=== PATIENT | female | born 1955 | race Caucasian/White ===

== ENCOUNTER → 2017-12-29 11:34 | Outpatient (CLI) | payer OTHER, SELFPAY ==
[2017-12-29 14:29] LABS: Anion Gap 12 (5-15); BUN 16 mg/dL (7-18); BUN/Creat Ratio 18.2 RATIO (10-20); Calcium,Total 8.7 mg/dL (8.5-10.1); Chloride 107 mmol/L (98-107); Cholesterol 156 mg/dL (200); Creatinine, Serum 0.88 mg/dL (0.55-1.02); EST Glomerular Filtration Rate 69 mL/min (>60); Est Glom Filt Rate - Afr Amer 84 mL/min (>60); Glucose 90 mg/dL (74-106); High Density Lipoprotein 42 mg/dL; Potassium 4.2 mmol/L (3.5-5.1); Sodium Level 143 mmol/L (136-145); Thyroid Stim Hormone (TSH) 1.26 uIU/mL (0.358-3.74); Triglycerides 85 mg/dL; Very Low Density Lipoprotein 17 mg/dL (5-40)
== END ==
LOC: MFPLAB 11:36
PROVIDERS: Family Provider Family Medicine; PCP Family Medicine; Visit Provider Family Medicine
DX: I10 Essential (primary) hypertension (principal); E66.9 Obesity, unspecified
CPT/HCPCS: 36415; 80048; 80061; 84443

== ENCOUNTER → 2019-01-18 10:05 | Outpatient (CLI) | payer OTHER, SELFPAY ==
[2019-01-18 12:26] LABS: Absolute Lymphocyte Count 2.16 X10^3/uL (0.83-4.51); Absolute Neutrophil Count 4.2 X10^3/uL (2.0-7.7); Basophil# 0.11 X10^3/uL; Basophil% 1.5 % (0-1); Eosinophil# 0.37 X10^3/uL; Hematocrit 38.1 % (37-47); Hemoglobin 11.9 g/dL (12.0-15.0); Lymphocyte # 2.16 X10^3/ul (4.0); Mean Corp Hgb Conc 31.2 g/dL (32-36); Mean Corpuscular Hgb 29.5 pg (27.0-32.0); Mean Corpuscular Volume 94.5 fL (81-99); Mean Platelet Vol. 9.9 fl (6.2-12.0); Monocyte# 0.59 X10^3/uL; Monocyte% 7.9 % (0-10); NRBC Flagged by Analyzer 0 % (0-5); Neutrophil % 56.3 % (47-70); Platelet Count 358 K/mm3 (150-450); RBC Distribution Width CV 14.7 % (11.6-14.6); RBC Distribution Width SD 51.2 fl (35.1-43.9); Red Blood Count 4.03 M/mm3 (4.2-5.4); White Blood Count 7.5 K/mm3 (4.4-11.0)
[2019-01-18 12:47] LABS: Anion Gap 4 (5-15); BUN 18 mg/dL (7-18); BUN/Creat Ratio 17.5 RATIO (10-20); Chloride 106 mmol/L (98-107); Cholesterol 125 mg/dL (200); Creatinine, Serum 1.03 mg/dL (0.55-1.02); EST Glomerular Filtration Rate 57 mL/min (>60); Est Glom Filt Rate - Afr Amer 69 mL/min (>60); Glucose 95 mg/dL (74-106); High Density Lipoprotein 40 mg/dL; Potassium 4.5 mmol/L (3.5-5.1); Sodium Level 139 mmol/L (136-145); Triglycerides 83 mg/dL; Very Low Density Lipoprotein 17 mg/dL (5-40)
== END ==
LOC: MFPLAB 10:06
PROVIDERS: Family Provider Family Medicine; PCP Family Medicine; Referring Provider Family Medicine; Visit Provider Family Medicine
DX: I10 Essential (primary) hypertension (principal); K62.5 Hemorrhage of anus and rectum
CPT/HCPCS: 36415; 80048; 80061; 85025

== ENCOUNTER 2019-11-18 09:43 | Emergency (ER) | payer OTHER, SELFPAY ==
[2019-11-18] VITALS (8 sets, daily range): BP systolic 92–142; BP diastolic 62–81; PULSE 75–94; RESP 12–22; TEMP 36.8; O2SAT 95–98; BMI 41.2
--- NOTE | 2019-11-18 09:48 | EKG12_ITS ---
Test Reason : Blood Pressure : / mmHG Vent. Rate : 086 BPM Atrial Rate : 086 BPM P-R Int : 142 ms QRS Dur : 078 ms QT Int : 370 ms P-R-T Axes : 034 012 029 degrees QTc Int : 442 ms Normal sinus rhythm Normal ECG Confirmed by BERTHA SANCHEZ MD ([id number]), metropolitan editor THA ADKINS ([id number] on 11/21/2019 1:08:50 PM Referred By: CL Confirmed By:BERTHA SANCHEZ MD
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
[2019-11-18] MEDS: Diphth,Pertuss(Acell),Tet Vac 0.5 ML Vial IM (10:05)
[2019-11-18 10:20] LABS: Absolute Lymphocyte Count 2.47 X10^3/uL (0.83-4.51); Absolute Neutrophil Count 10.8 X10^3/uL (2.0-7.7); Basophil# 0.08 X10^3/uL; Basophil% 0.5 % (0-1); Eosinophil# 0.28 X10^3/uL; Eosinophils% 1.9 % (0-5); Hematocrit 37.3 % (37-47); Hemoglobin 12.5 g/dL (12.0-15.0); Lymphocyte # 2.47 X10^3/ul (4.0); Lymphocyte % 16.7 % (19-41); Mean Corp Hgb Conc 33.5 g/dL (32-36); Mean Corpuscular Hgb 30.6 pg (27.0-32.0); Mean Corpuscular Volume 91.4 fL (81-99); Mean Platelet Vol. 9.5 fl (6.2-12.0); Monocyte# 1.04 X10^3/uL; NRBC Flagged by Analyzer 0 % (0-5); Neutrophil % 73.2 % (47-70); Platelet Count 341 K/mm3 (150-450); RBC Distribution Width CV 13.8 % (11.6-14.6); RBC Distribution Width SD 46.9 fl (35.1-43.9); Red Blood Count 4.08 M/mm3 (4.2-5.4); White Blood Count 14.8 K/mm3 (4.4-11.0)
[2019-11-18 10:45] LABS: Anion Gap 6 (5-15); BUN 15 mg/dL (7-18); BUN/Creat Ratio 13.9 RATIO (10-20); Calcium,Total 8.5 mg/dL (8.5-10.1); Chloride 104 mmol/L (98-107); Creatinine, Serum 1.08 mg/dL (0.55-1.02); EST Glomerular Filtration Rate 54 mL/min (>60); Est Glom Filt Rate - Afr Amer 66 mL/min (>60); Estimated Creatinine Clearance 47.35 ml/min; Glucose 135 mg/dL (74-106); Potassium 3.8 mmol/L (3.5-5.1); Sodium Level 136 mmol/L (136-145)
[2019-11-18 11:42] LABS: Bacteria 0 SEEN /hpf (None Seen); Mucous, Urine 0 SEEN /hpf (<or=2+); Red Blood Cells-Urine 0 SEEN /hpf (0-5); White Blood Cells 0 SEEN /hpf (0-5)
[2019-11-18 11:54] LABS: Color, Urine Yellow (Yellow); Glucose, Dipstick Normal (Normal); Ketone-Dipstick Negative (Negative); Leukocyte Esterase-Dipstick Negative /ul (Negative); Nitrite-Dipstick Negative (Negative); Occult Blood-Urine Negative /ul (Negative); Protein-Dipstick Negative (Negative); Urine Bilirubin Dipstick Negative (Negative); Urine Clarity Clear (Clear); Urine Urobilinogen Normal (Normal)
[2019-11-18 12:02] LABS: Squamous Epithelial Cells - UA 0-5 SEEN /hpf (5-10)
[2019-11-18 12:56] LABS: Bedside Glucose 137 mg/dL (70-110)
[2019-11-18] MEDS: 0.9% Normal Saline 1,000 ML 999 ML IV (13:08)
[2019-11-18 13:12] LABS: Absolute Lymphocyte Count 1.86 X10^3/uL (0.83-4.51); Absolute Neutrophil Count 16.4 X10^3/uL (2.0-7.7); Basophil# 0.07 X10^3/uL; Basophil% 0.4 % (0-1); Eosinophil# 0.05 X10^3/uL; Eosinophils% 0.3 % (0-5); Hematocrit 37.6 % (37-47); Hemoglobin 12.2 g/dL (12.0-15.0); Lymphocyte # 1.86 X10^3/ul (4.0); Lymphocyte % 9.5 % (19-41); Mean Corp Hgb Conc 32.4 g/dL (32-36); Mean Corpuscular Hgb 30.5 pg (27.0-32.0); Mean Platelet Vol. 9.5 fl (6.2-12.0); Monocyte# 1.12 X10^3/uL; Monocyte% 5.7 % (0-10); NRBC Flagged by Analyzer 0 % (0-5); Neutrophil % 83.5 % (47-70); Platelet Count 341 K/mm3 (150-450); RBC Distribution Width CV 13.9 % (11.6-14.6); RBC Distribution Width SD 48.1 fl (35.1-43.9); White Blood Count 19.6 K/mm3 (4.4-11.0)
[2019-11-18 13:13] LABS: Amphetamine Urine VISTA NEGATIVE (<1000 ng/mL); Barbiturate Urine VISTA NEGATIVE (< 200 ng/mL); Benzodiazepine Urine VISTA NEGATIVE (< 200 ng/mL); Cocaine Urine VISTA NEGATIVE (< 300 ng/mL); Ecstacy Urine VISTA NEGATIVE (< 500 ng/mL); Methadone Urine VISTA NEGATIVE (< 300 ng/mL); PCP Urine VISTA NEGATIVE (< 25 ng/mL); THC Urine VISTA NEGATIVE (< 50 ng/mL); Vista UDS pH Range 6
== END 2019-11-18 14:59 | disposition home or self-care (01) ==
PROVIDERS: Emergency Provider Emergency Medicine; PCP Family Medicine
DX: S20.219A Contusion of unspecified front wall of thorax, initial encounter (principal); S30.1XXA Contusion of abdominal wall, initial encounter; S70.212A Abrasion, left hip, initial encounter; Z23 Encounter for immunization; V43.52XA Car driver injured in collision with other type car in traffic accident, initial encounter; Y93.9 Activity, unspecified; Y92.9 Unspecified place or not applicable; Y99.9 Unspecified external cause status; Z79.899 Other long term (current) drug therapy
CPT/HCPCS: 70450; 71260; 72125; 74177; 80048; 80307; 80320; 81001; 82962; 84484; 85025; 90471; 90715; 93005; 96361; 96374; 99285; Q9967; A4216; G0480

== ENCOUNTER → 2020-07-31 12:34 | Outpatient (CLI) | payer OTHER, SELFPAY ==
[2019-11-18 09:45] VITALS: BMI 41.2
[2020-07-31 15:21] LABS: Absolute Lymphocyte Count 2.33 X10^3/uL (0.83-4.51); Absolute Neutrophil Count 6.5 X10^3/uL (2.0-7.7); Basophil# 0.09 X10^3/uL; Basophil% 0.9 % (0-1); Eosinophil# 0.23 X10^3/uL; Eosinophils% 2.3 % (0-5); Hematocrit 42.8 % (37-47); Hemoglobin 13.8 g/dL (12.0-15.0); Lymphocyte # 2.33 X10^3/ul (4.0); Lymphocyte % 23.3 % (19-41); Mean Corp Hgb Conc 32.2 g/dL (32-36); Mean Corpuscular Hgb 30.1 pg (27.0-32.0); Mean Corpuscular Volume 93.4 fL (81-99); Mean Platelet Vol. 10.1 fl (6.2-12.0); Monocyte# 0.79 X10^3/uL; Monocyte% 7.9 % (0-10); NRBC Flagged by Analyzer 0 % (0-5); Neutrophil # 6.53 X10^3/uL (2.7-7.7); Neutrophil % 65.3 % (47-70); Platelet Count 409 K/mm3 (150-450); RBC Distribution Width CV 14.1 % (11.6-14.6); RBC Distribution Width SD 48.2 fl (35.1-43.9); Red Blood Count 4.58 M/mm3 (4.2-5.4)
[2020-07-31 15:47] LABS: ALB/GLOB Ratio 0.9 RATIO (0.9-2.4); AST(SGOT) 17 U/L (15-37); Alanine Aminotransfer ALT/SGPT 26 U/L (13-56); Albumin, Serum 3.6 g/dL (3.2-5.0); Alkaline Phosphatase 101 U/L (45-117); Anion Gap 5 (5-15); BUN 14 mg/dL (7-18); BUN/Creat Ratio 16.6 RATIO (10-20); Chloride 105 mmol/L (98-107); Cholesterol 150 mg/dL (200); Creatinine, Serum 0.84 mg/dL (0.55-1.02); EST Glomerular Filtration Rate 72 mL/min (>60); Est Glom Filt Rate - Afr Amer 87 mL/min (>60); Globulin 4.2 g/dL (2.2-4.2); Glucose 89 mg/dL (74-106); High Density Lipoprotein 35 mg/dL; Potassium 4.1 mmol/L (3.5-5.1); Protein, Total 7.8 g/dL (6.4-8.2); Sodium Level 137 mmol/L (136-145); Triglycerides 186 mg/dL; Very Low Density Lipoprotein 37 mg/dL (5-40)
[2020-07-31 15:48] LABS: Hemoglobin A1c 5.7 % (3.8-5.6)
== END ==
PROVIDERS: PCP Family Medicine; Referring Provider Registered Nurse; Visit Provider Registered Nurse
DX: Z00.00 Encounter for general adult medical examination without abnormal findings (principal)
CPT/HCPCS: 36415; 80053; 80061; 83036; 85025

== ENCOUNTER → 2020-08-27 16:25 | Outpatient (CLI) | payer OTHER, SELFPAY ==
[2019-11-18 09:45] VITALS: BMI 41.2
[2020-08-27 17:34] LABS: Absolute Lymphocyte Count 3.52 X10^3/uL (0.83-4.51); Absolute Neutrophil Count 7.6 X10^3/uL (2.0-7.7); Basophil# 0.09 X10^3/uL; Basophil% 0.7 % (0-1); Eosinophil# 0.32 X10^3/uL; Eosinophils% 2.5 % (0-5); Hematocrit 27.5 % (37-47); Hemoglobin 8.5 g/dL (12.0-15.0); Lymphocyte # 3.52 X10^3/ul (0.83-4.51); Mean Corp Hgb Conc 30.9 g/dL (32-36); Mean Corpuscular Volume 93.9 fL (81-99); Mean Platelet Vol. 9.7 fl (6.2-12.0); Monocyte% 7.2 % (0-10); NRBC Flagged by Analyzer 0 % (0-5); Neutrophil # 7.63 X10^3/uL (2.7-7.7); Neutrophil % 60.6 % (47-70); Platelet Count 419 K/mm3 (150-450); RBC Distribution Width CV 14.9 % (11.6-14.6); Red Blood Count 2.93 M/mm3 (4.2-5.4); White Blood Count 12.6 K/mm3 (4.4-11.0)
== END ==
PROVIDERS: PCP Family Medicine; Visit Provider Family Medicine
DX: K92.2 Gastrointestinal hemorrhage, unspecified (principal)
CPT/HCPCS: 36415; 85025

== ENCOUNTER 2020-08-28 11:42 | Emergency (ER) | payer OTHER, SELFPAY ==
[2019-11-18 09:45] VITALS: BMI 41.2
[2020-08-28 11:43] VITALS: BP 132/77; PULSE 98; RESP 22; TEMP 36.3; O2SAT 99; BMI 38.9
[2020-08-28 12:39] LABS: Absolute Lymphocyte Count 2.72 X10^3/uL (0.83-4.51); Absolute Neutrophil Count 9.4 X10^3/uL (2.0-7.7); Basophil# 0.11 X10^3/uL; Basophil% 0.8 % (0-1); Eosinophils% 2.2 % (0-5); Hematocrit 28.4 % (37-47); Lymphocyte # 2.72 X10^3/ul (0.83-4.51); Lymphocyte % 19.8 % (19-41); Mean Corp Hgb Conc 31.7 g/dL (32-36); Mean Corpuscular Hgb 29.6 pg (27.0-32.0); Mean Corpuscular Volume 93.4 fL (81-99); Mean Platelet Vol. 9.2 fl (6.2-12.0); Monocyte# 1.06 X10^3/uL; Monocyte% 7.7 % (0-10); NRBC Flagged by Analyzer 0 % (0-5); Neutrophil # 9.41 X10^3/uL (2.7-7.7); Neutrophil % 68.3 % (47-70); Platelet Count 433 K/mm3 (150-450); RBC Distribution Width CV 15.2 % (11.6-14.6); Red Blood Count 3.04 M/mm3 (4.2-5.4); White Blood Count 13.8 K/mm3 (4.4-11.0)
[2020-08-28 12:44] VITALS: BP 113/65; PULSE 80; RESP 10; O2SAT 97
[2020-08-28 12:48] LABS: International Normalized Ratio 1.1; Prothrombin Time (Protime)PT. 13.2 SECONDS (11.7-14.9)
[2020-08-28 12:49] LABS: Partial Thromboplast Time 27.1 Seconds (24.1-36.2)
[2020-08-28 12:54] LABS: Anion Gap 7 (5-15); BUN 10 mg/dL (7-18); BUN/Creat Ratio 11.1 RATIO (10-20); Calcium,Total 8.5 mg/dL (8.5-10.1); Chloride 108 mmol/L (98-107); EST Glomerular Filtration Rate 67 mL/min (>60); Est Glom Filt Rate - Afr Amer 81 mL/min (>60); Estimated Creatinine Clearance 56.08 ml/min; Glucose 93 mg/dL (74-106); Potassium 3.7 mmol/L (3.5-5.1); Sodium Level 140 mmol/L (136-145)
--- NOTE | 2020-08-28 12:54 | EDS_ITS ---
HPI HPI - GI History of Present Illness Chief Complaint: GI Bleed Narrative Narrative: Patient presenting for evaluation due to concerns for a GI bleed. Patient states that on Thursday and Thursday of last week she was having issues with gastrointestinal bleeding. She reports that she was having both black tarry stools as well as bright red blood per rectum. She had multiple episodes of this throughout the course of those days. She denies any abdominal pain. She denies any fevers. She denies nausea vomiting or hematemesis associated with this. Throughout the course of that time the patient stated that she started to have feelings of being more short of breath on exertion. She denies any chest pain. She does also report that she was having increased fatigue. Her primary care yohannes labs, noted that she had a hemoglobin of 8-1/2 and recommended that she come to the emergency department. Patient is not anticoagulated, she does take prescription strength Naprosyn which she states that she stopped on Thursday. Review of systems otherwise negative. [facility] Medical History (Updated 08/28/20 @ 13:[address] Tino Johnson MD) Hypertension Home Medications amlodipine 5 mg PO DAILY 11/18/19 [History Last Taken 08/27/20] hydrocodone-acetaminophen 0.5 - 1 tab PO BID PRN PRN 11/18/19 [History Last Taken 08/28/20] naproxen 500 mg PO BID 11/18/19 [History Last Taken 08/23/20] aspirin [Aspirin Low Dose] 81 mg PO DAILY 08/28/20 [History Last Taken 08/28/20] ferrous sulfate [iron] 325 mg PO DAILY #30 tab 08/28/20 [Rx Last Taken Unknown] Allergy/AdvReac Type Severity Reaction Status Date / Time Penicillins Allergy Hives Verified 08/28/20 11:43 Surgical History (Updated 08/28/20 @ 12:47 by Andres Peace) History of cholecystectomy Social History Smoking Status: Current every day smoker [facility] ED Constitutional Constitutional ED: Denies chills or fever(s) ENT ENT ED: Denies sore throat Cardiovascular Cardiovascular: Denies chest pain Respiratory/Chest Respiratory/Chest: Denies cough or dyspnea Gastrointestinal Gastrointestinal: Reports hematochezia; Denies abdominal pain, constipation, diarrhea, nausea or vomiting Genitourinary Genitourinary ED: Denies dysuria, hematuria or urinary frequency Musculoskeletal Musculoskeletal: Denies myalgias Integumentary Denies rash Neurologic Neurologic: Denies paresthesias or weakness Psychiatric Psychiatric: Denies depression Endocrine Endocrinology: Denies polyuria Hematologic/Lymphatic Hematologic/Lymphatic: Denies easy bleeding or easy bruising Allergic/Immunologic Allergic/Immunologic ED: Denies urticaria EXAM Physical Exam Const Vital Signs: 08/28/20 11:43 08/28/20 12:44 Temperature 97.4 F L Temperature Source Temporal Pulse Rate 98 80 Respiratory Rate 22 H 10 L Blood Pressure 132/77 H 113/65 Blood Pressure Mean 95 81 Pulse Ox 99 97 Oxygen Delivery Method Room Air Room Air Positive well nourished and well developed General Appearance ED: well developed and NAD HEENT normocephalic and atraumatic Eyes EOMs intact bilaterally General Eye ED: Negative for pale conjunctiva or scleral icterus Neck no lymphadenopathy and supple Resp normal respiratory effort and clear to auscultation bilaterally Cardio regular rate, regular rhythm, no murmurs and peripheral pulses 2+ throughout GI non-tender, non-distended and no masses Palpation: soft; Negative for guarding, rigid or rebound tenderness present Back/Spine no CVA tenderness Extremity full ROM General Extremety ED: Negative for edema General Extremity: Negative for edema Neuro moves all extremities and no sensory deficits noted Sensorium / Orientation: alert, oriented to person, oriented to place and oriented to time Motor Exam: strength 5/5 throughout Psych mental status grossly normal Skin Rashes: no rashes MDM MDM MDM Narrative Medical decision making narrative: Patient presented with signs and symptoms of GI bleed. I did recheck the patient's hemoglobin, it is 9.0. This is a significant drop from prior labs that the patient had in July where her hemoglobin was 13.8 but it is not to the point of severe anemia where she necessarily requires a blood transfusion. She did have mild leukocytosis at 13.8 likely reactive. Patient's chemistry unremarkable she does not have pathologic elevation of her BUN making the likelihood of an upper GI bleed less likely. Patient has stable vitals in the emergency department. I had a megha discussion with patient about inpatient versus outpatient management and she does state that she would wish to manage this as an outpatient. 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 Patient was educated on signs and symptoms which to return she voiced understanding of these in her own words. Patient was discharged in stable condition. Lab Data Labs: Laboratory Results - last 24 hr 08/28/20 08/28/20 08/28/20 12:30 12:30 12:30 WBC 13.8 H RBC 3.04 L Hgb 9.0 L Hct 28.4 L MCV 93.4 MCH 29.6 MCHC 31.7 L RDW Std Deviation 51.0 H RDW Coeff of Angeline 15.2 H Plt Count 433 MPV 9.2 Immature Gran % (Auto) 1.200 H Neut % (Auto) 68.3 Lymph % (Auto) 19.8 [place] % (Auto) 7.7 Eos % (Auto) 2.2 Baso % (Auto) 0.8 Absolute Neuts (auto) 9.4 H Absolute Lymphs (auto) 2.72 Nucleated RBC % 0 PT 13.2 INR 1.1 APTT 27.1 Sodium 140 Potassium 3.7 Chloride 108 H Carbon Dioxide 25.0 Anion Gap 7 BUN 10 Creatinine 0.90 Estim Creat Clear Calc 56.08 Est GFR (MDRD) Af Amer 81 Est GFR (MDRD) Non-Af 67 BUN/Creatinine Ratio 11.1 Glucose 93 Calcium 8.5 Blood Type Antibody Screen Crossmatch 08/28/20 12:30 WBC RBC Hgb Hct MCV MCH MCHC RDW Std Deviation RDW Coeff of Angeline Plt Count MPV Immature Gran % (Auto) Neut % (Auto) Lymph % (Auto) [place] % (Auto) Eos % (Auto) Baso % (Auto) Absolute Neuts (auto) Absolute Lymphs (auto) Nucleated RBC % PT INR APTT Sodium Potassium Chloride Carbon Dioxide Anion Gap BUN Creatinine Estim Creat Clear Calc Est GFR (MDRD) Af Amer Est GFR (MDRD) Non-Af BUN/Creatinine Ratio Glucose Calcium Blood Type Cancelled Antibody Screen Cancelled Crossmatch See Detail Discharge Plan Triage Chief Complaint: GI Bleed Other Complaint: Abn Labs ED Provider: Tino Johnson Dx/Rx/DC Orders Clinical Impression: Acute lower gastrointestinal bleeding, Anemia Instructions: ED Lower GI Bleeding (Stable) Prescriptions: New ferrous sulfate [iron] 325 mg (65 mg iron) tablet 325 mg PO DAILY Qty: 30 RF: 0 No Action hydrocodone-acetaminophen 1 EACH tablet 0.5 - 1 tab PO BID PRN PRN (Reason: mod pain) RF: 0 amlodipine 5 MG tablet 5 mg PO DAILY RF: 0 naproxen 500 MG tablet 500 mg PO BID RF: 0 aspirin [Aspirin Low Dose] 81 mg Tablet,Delayed Release (Dr/Ec) 81 mg PO DAILY RF: 0 Primary Care Provider: Allyn Campos Referrals: Allyn Campos MD [Primary Care Provider] - Jt Thomson MD [NON-STAFF] - 1 Day (Call tomorrow for an appointment to be seen on Thursday) Disposition Disposition: Home, self care
--- NOTE | 2020-08-28 12:57 | HP.PCM.HOS_ITS ---
[facility] Medical History (Updated 08/28/20 @ 12:50 by Andres Peace) Hypertension Home Medications amlodipine 5 mg PO DAILY 11/18/19 [History Last Taken Unknown] hydrocodone-acetaminophen 1 ea PO BID PRN PRN 11/18/19 [History Last Taken Unknown] naproxen 500 mg PO BID 11/18/19 [History Last Taken Unknown] Allergy/AdvReac Type Severity Reaction Status Date / Time Penicillins Allergy Hives Verified 08/28/20 11:43 Surgical History (Updated 08/28/20 @ 12:47 by Andres Peace) History of cholecystectomy Social History Smoking Status: Current every day smoker Vital Signs Vital Signs Vital Signs: 08/28/20 11:43 08/28/20 12:44 Temperature 97.4 F L Temperature Source Temporal Pulse Rate 98 80 Respiratory Rate 22 H 10 L Blood Pressure 132/77 H 113/65 Blood Pressure Mean 95 81 Pulse Ox 99 97 Oxygen Delivery Method Room Air Room Air Lab / Micro Data Result Diagrams: 08/28/20 12:30 08/28/20 12:30 Labs: Laboratory Results - last 24 hr 08/28/20 08/28/20 08/28/20 12:30 12:30 12:30 WBC 13.8 H RBC 3.04 L Hgb 9.0 L Hct 28.4 L MCV 93.4 MCH 29.6 MCHC 31.7 L RDW Std Deviation 51.0 H RDW Coeff of Angeline 15.2 H Plt Count 433 MPV 9.2 Immature Gran % (Auto) 1.200 H Neut % (Auto) 68.3 Lymph % (Auto) 19.8 [place] % (Auto) 7.7 Eos % (Auto) 2.2 Baso % (Auto) 0.8 Absolute Neuts (auto) 9.4 H Absolute Lymphs (auto) 2.72 Nucleated RBC % 0 PT 13.2 INR 1.1 APTT 27.1 Sodium 140 Potassium 3.7 Chloride 108 H Carbon Dioxide 25.0 Anion Gap 7 BUN 10 Creatinine 0.90 Estim Creat Clear Calc 56.08 Est GFR (MDRD) Af Amer 81 Est GFR (MDRD) Non-Af 67 BUN/Creatinine Ratio 11.1 Glucose 93 Calcium 8.5 Blood Type Antibody Screen Crossmatch 08/28/20 12:30 WBC RBC Hgb Hct MCV MCH MCHC RDW Std Deviation RDW Coeff of Angeline Plt Count MPV Immature Gran % (Auto) Neut % (Auto) Lymph % (Auto) [place] % (Auto) Eos % (Auto) Baso % (Auto) Absolute Neuts (auto) Absolute Lymphs (auto) Nucleated RBC % PT INR APTT Sodium Potassium Chloride Carbon Dioxide Anion Gap BUN Creatinine Estim Creat Clear Calc Est GFR (MDRD) Af Amer Est GFR (MDRD) Non-Af BUN/Creatinine Ratio Glucose Calcium Blood Type Cancelled Antibody Screen Cancelled Crossmatch See Detail
--- NOTE | 2020-08-28 13:02 | NURSING ---
HOSPITALIST FOR DR ZAMUDIO
[2020-08-28 13:34] VITALS: BP 110/69; PULSE 81; RESP 22; O2SAT 99
== END 2020-08-28 13:47 | disposition home or self-care (01) ==
PROVIDERS: Emergency Provider Emergency Medicine; PCP Family Medicine
DX: K92.2 Gastrointestinal hemorrhage, unspecified (principal); D64.9 Anemia, unspecified; R06.02 Shortness of breath; I10 Essential (primary) hypertension; F17.200 Nicotine dependence, unspecified, uncomplicated; Z79.82 Long term (current) use of aspirin; Z79.1 Long term (current) use of non-steroidal anti-inflammatories (NSAID); Z79.899 Other long term (current) drug therapy
CPT/HCPCS: 80048; 85025; 85610; 85730; 86850; 86900; 86901; 99284; A4216

== ENCOUNTER → 2021-04-09 15:16 | Outpatient (CLI) | payer MEDICARE, SELFPAY ==
--- NOTE | 2021-04-09 15:21 | RAD_ITS ---
STUDY: X-RAY - PELVIS AND LEFT HIP REASON FOR EXAM: Female, 66 years old. PAIN TECHNIQUE: 3 views of the pelvis and hip. COMPARISON: None. FINDINGS: There is a non-specific bowel gas pattern. Normal visualized soft tissue structures. There is narrowing with cortical sclerosis and osteophyte formation of the sacroiliac joint consistent with degenerative osteoarthritic changes. Normal bilateral superior and inferior pubic rami. Normal pubic symphysis. Normal bilateral ischial tuberosities. There are osteoarthritic changes of the femoral head with marginal osteophyte formation. Increased sclerosis over the articular region seen. There is cortical sclerosis with sub-cortical cyst formation of the acetabulum. is severe articular joint space narrowing of the hip. RAD/HIP, UNI W/ Pelvis 2-3 Views IMPRESSION: Severe degenerative disease of the left hip. No acute fracture or subluxation seen. Electronically Signed: Jess Asher MD at 2:14 EST , Service support ,
== END ==
PROVIDERS: PCP Family Medicine; Referring Provider Family Medicine; Visit Provider Family Medicine
DX: M25.559 Pain in unspecified hip (principal)
CPT/HCPCS: 73502

== ENCOUNTER 2021-05-22 07:49 | Outpatient (CLI) | payer MEDICARE, SELFPAY ==
--- NOTE | 2021-05-22 07:56 | CT_ITS ---
STUDY: CT SCAN OF THE HIPS BILATERAL REASON FOR EXAM: Female, 66 years old. Templating for left hip RADIATION DOSAGE (If Supplied By Facility): CTDIvol = ( 13.96 ) mGy, DLP = ( 819.71 ) mGycm. Individualized dose optimization techniques were used for this CT.? TECHNIQUE: Multiple axial tomographic images of both hip joints were obtained without intravenous contrast demonstration. Coronal and sagittal reconstruction was obtained as well. Limited imaging of both knee joints was also obtained. COMPARISON: None. FINDINGS: There is a marked degree of joint space narrowing of the left hip joint. There is evidence of a subchondral geodes in the acetabular region as well as the left femoral head. There is degenerative spurring of the femoral head. Avascular necrosis should be ruled out. Mild to moderate degree of joint space narrowing of the right hip joint. There is a marked degree of osteoarthritis and joint space narrowing with subchondral cysts of the lateral femoral compartment of the right knee joint. Moderate degree of joint space narrowing involving the medial compartment of the left knee joint. 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 Electronically Signed: Daniel Goncalves MD at 15:20 EST ,
== END 2021-05-22 23:59 | disposition short-term general hospital (02) ==
LOC: CT 07:51
PROVIDERS: PCP Family Medicine; Referring Provider Orthopaedic Surgery; Visit Provider Orthopaedic Surgery
DX: M16.12 Unilateral primary osteoarthritis, left hip (principal)
CPT/HCPCS: 73700

== ENCOUNTER 2021-06-18 10:21 | Observation (INO) | payer MEDICARE, SELFPAY ==
--- NOTE | 2021-06-05 09:08 | EKG12_ITS ---
Test Reason : PRE OP Blood Pressure : / mmHG Vent. Rate : 082 BPM Atrial Rate : 082 BPM P-R Int : 150 ms QRS Dur : 072 ms QT Int : 376 ms P-R-T Axes : 039 -07 022 degrees QTc Int : 439 ms Normal sinus rhythm Normal ECG Confirmed by DANIEL ZEPEDA, BERTHA ([id number]), advertising editor SEGUN BABIN ([id number]) on 06/06/2021 9:52:29 AM Referred By: Leonel Oviedo Confirmed By:BERTHA SANCHEZ MD
[2021-06-05 11:11] LABS: Absolute Neutrophil Count 5.2 X10^3/uL (2.0-7.7); Basophil# 0.08 X10^3/uL; Basophil% 0.9 % (0-1); Eosinophil# 0.19 X10^3/uL; Eosinophils% 2.2 % (0-5); Hematocrit 40.6 % (37-47); Hemoglobin 13.2 g/dL (12.0-15.0); Mean Corp Hgb Conc 32.5 g/dL (32-36); Mean Corpuscular Hgb 30.2 pg (27.0-32.0); Mean Corpuscular Volume 92.9 fL (81-99); Mean Platelet Vol. 9.3 fl (6.2-12.0); Monocyte% 8.2 % (0-10); NRBC Flagged by Analyzer 0 % (0-5); Neutrophil # 5.19 X10^3/uL (2.7-7.7); Neutrophil % 61.1 % (47-70); Platelet Count 443 K/mm3 (150-450); RBC Distribution Width CV 13.1 % (11.6-14.6); RBC Distribution Width SD 44.8 fl (35.1-43.9); Red Blood Count 4.37 M/mm3 (4.2-5.4); White Blood Count 8.5 K/mm3 (4.4-11.0)
[2021-06-05 11:47] LABS: Anion Gap 6 (5-15); BUN 10 mg/dL (7-18); BUN/Creat Ratio 12.1 RATIO (10-20); Calcium,Total 9.1 mg/dL (8.5-10.1); Chloride 107 mmol/L (98-107); Creatinine, Serum 0.82 mg/dL (0.55-1.02); EST Glomerular Filtration Rate 74 mL/min (>60); Est Glom Filt Rate - Afr Amer 89 mL/min (>60); Glucose 89 mg/dL (74-106); Potassium 3.8 mmol/L (3.5-5.1); Sodium Level 139 mmol/L (136-145)
[2021-06-05 12:02] LABS: International Normalized Ratio 1.1; Partial Thromboplast Time 28.4 Seconds (24.1-36.2); Prothrombin Time (Protime)PT. 13.1 SECONDS (11.7-14.9)
[2021-06-06 09:30] LABS: Fructosamine 216 umol/L (0-285); MG Sendout 2.1 mg/dL (1.6-2.3)
[2021-06-18] VITALS (15 sets, daily range): BP systolic 104–141; BP diastolic 72–89; PULSE 68–92; RESP 11–18; TEMP 36.3–36.8; O2SAT 95–100; BMI 41.1
--- NOTE | 2021-06-18 | HIP_PTH ---
PATIENT: HIGINIO JEREZ LOC: MS3 U#:[id number] AGE/SX: 66/F [place] [facility] [place]: Dr. Leonel Oviedo DO : 1955 BED: 1 DIS: 06/20/2021 SPEC #: [id number] RECD: 06/18/21 13:05 STATUS: ERYN DEANNabila #: [id number] MARILU: 06/18/21 00:[address]: Leonel Oviedo DEPT: SURGICAL PATHOLOGY RECD BY: iWlli Medrano ENTERED: 06/18/21 13:05 SP TYPE: TOTAL HIP OTHR DR: Dr. Allyn Campos MD Tissues: Hip, NOS Procedures: Decalcification bone/plaque Surgery Specimen Level IV HEADER OPERATION: Total hip replacement robotic arm assist PRE-OP DIAGNOSIS: Osteoarthritis left hip TISSUE SUBMITTED: Bone left hip MICROSCOPIC DIAGNOSIS Bone and tissue of left hip, total hip resection: Severe degenerative joint disease. Synovium with mild chronic inflammation. AM:rosemarie 06/20/2021 MICROSCOPIC DESCRIPTION Slides are reviewed. GROSS DESCRIPTION Received is one container labeled with the patient's name and designated bone left hip. The specimen consists of a partly deformed femoral head measuring 5 x 5 x 4.5 cm. The portion of femoral neck measures up to 1 cm in length. Also present attached to the femoral head is a piece of soft tissue measuring 2 x 1 x 0.6 cm. The articular surface displays prominent osteophyte formation, eburnation and bone erosion. The area of eburnation also shows laguerre-white discoloration measuring 4 x 3.5 cm. Sections reveal a laguerre-white area on the surface measuring up to 0.7 cm in depth. [employer] sections are submitted in three cassettes as follows: 1 - soft tissue, entirely submitted, 2?& 3 ?femoral head after decalcification. / SJ:rosemarie 06/18/2021 TC:5 CPT: 45496, 01432
[2021-06-18] MEDS: Lactated Ringers 1,000 ML 999 ML IV (06:40)
[2021-06-18] MEDS: Scopolamine 1mg/72hr Patch 1 PATCH TD (06:52)
[2021-06-18] MEDS: Acetaminophen 500 MG Tablet 1000 MG PO ×3 (06:53→21:10)
[2021-06-18] MEDS: Celecoxib 200 MG Capsule 400 MG PO (06:53)
[2021-06-18] MEDS: Gabapentin 600 MG Tablet PO (06:53)
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
[2021-06-18 07:46] LABS: Bedside Glucose 105 mg/dL (70-110)
[2021-06-18] MEDS: dexAMETHasone 10 MG/ML Vial IV (08:10)
--- NOTE | 2021-06-18 10:16 | RAD_ITS ---
STUDY: X-RAY - PELVIS AND LEFT HIP REASON FOR EXAM: Female, 66 years old. Post Op -- AP both hips on single kristine/lateral of op hip PACU TECHNIQUE: 3 views of the pelvis and hip. COMPARISON: Comparison is made with prior study dated 04/09/2021. FINDINGS: The patient is status post left total hip replacement. There is good alignment. Postoperative soft tissue changes. RAD/Hip Min 2 Views (Portable) IMPRESSION: Status post left total hip replacement. There is good alignment. Postoperative soft tissue changes. Electronically Signed: Daniel Goncalves MD at 11:10 EST ,
--- NOTE | 2021-06-18 10:23 | OP.PCM_ITS ---
Report of Operation Date of Procedure: 06/18/21 Description of Surgical Findings:: Preoperative diagnosis: Left hip DJD Postoperative diagnosis: Same Procedure: CT-guided Makoplasty assisted left total hip arthroplasty Implants: Aurelio Accolade II stem size 6, 132 degree neck angle +2.5 neck length 54 mm Trident II acetabular shell with 40 mm cancellous screw 36 mm ceramic head Anesthesia: Spinal EBL: 175 cc Complications: None Condition: Stable to PACU Indication for procedure: This is a 66-year-old female who has had long-standing arthrosis of the hip who has failed conservative treatment and wished to undergo total hip arthroplasty. We did discuss operative versus nonoperative intervention including risks of bleeding, infection , nerve artery tissue damage, need for further surgery, fracture, leg length discrepancy dislocation blood clot and need for postoperative physical therapy and postoperative expectations. An informed consent was signed. Procedure: Patient was met in the preoperative holding area once again the operative extremity was identified by both patient and physician and was marked. Patient was met by anesthesia . Anesthesia was started. patient was then positioned in the lateral decubitus position on a well-padded pegboard with an axillary roll. All bony prominences were checked and padded. The patient was prepped and draped in the usual sterile fashion. A timeout was called to ensure the proper patient procedure and extremity were being contemplated. Anatomic landmarks were palpated and marked for a standard posterior lateral approach. Prior to this the ASIS was palpated and 3 fingerbreadths proximal to this 3 pins were placed at a 45 degree angle into the iliac crest with good purchase, stab incisions were made with a 15 blade into the skin prior to placement. The Makoplasty array was then secured. A 10 blade scalpel was used to make a hearing instrument specialist ior incision through the skin and subcutaneous tissue. retractors were used and electrocautery was used to maintain meticulous hemostasis and dissect full- thickness flaps until the gluteal fascia was reached. The gluteal fascia was incised in line with the gluteal fibers. The bursal tissue was then freed from the underside and a Charnley retractor was placed. The femoral trochanteric checkpoint was placed and leg length was assessed using the trochanteric checkpoint and an EKG lead that was placed on the knee prior to prepping the leg .the fat pad was then elevated off of the external rotators with electrocautery and the external rotators were dissected off of the greater trochanter including the piriformis and were tagged with #1 Ethibond for later repair. The joint capsule opened with posterior trapdoor technique. The hip was surgically dislocated. The measurement on the preoperative CT from the top of the lesser trochanter to the femoral neck cut was marked Hohmann was placed around the lesser trochanter. A neck cutting guide was used to luis the neck with a Bovie and an oscillating saw was used complete the femoral neck cut. The femoral head was then removed and sized. We then turned our attention to the acetabulum. A Bovie was used to make a perforation in the anterior joint capsule and a Jeffrey retractor was placed this was repeated in the 6 o'clock position and a wide shubham was placed there. With a long handled knife the labral and pulvinar tissue were removed. We then registered the acetabulum with the pointing array and confirmed our landmarks. Once the socket was thoroughly prepared and labral tissue and pulvinar was removed we single reamed with the robotic arm. We then used the robotic arm to position the acetabular implant and impacted it into place under robotic guidance. We then proceeded to place a posterior superior screw by drilling first measuring and inserting the screw. We then inserted a trial liner. And turned our attention back to the femur at this point a femoral elevator was used. As well as a pointed wide Hohmann around the lesser trochanter and a Hohmann to help retract the gluteus medius. A box chisel was used to remove excess lateral neck followed by a canal finder and a lateralizing reamer. This was followed by sequential broaches. Attention was made of the version within the canal based on preoperative templating. Once the final broach was seated we then trialed reduced the hip it was determined that a 132 degree neck angle with a +2.5 neck length was the appropriate size. We then checked stability with shuck testing as well as flexion and internal rotation. then proceeded with hip extension and checked leg lengths at the knees and heels as well as with the trochanteric checkpoint and knee EKG lead. At this point trials were removed. A liner was inserted to the cup. The femoral stem was inserted. We re-trialed and then proceeded to impact the femoral head onto the Prabhu taper. We then surgically reduce the hip check stability again and leg lengths and were satisfied. Betadine rinse was allowed to sit for 5 minutes while everyone changed their gloves. Thorough irrigation was performed. Followed by closure of the external rotators with #2 FiberWire followed by closure of gluteal fascia with #1 Ethibond. 0 Vicryl fat stitches and 2-0 Vicryl subcutaneous stitches and otilio in the skin. A pulls were placed in the pin sites over the iliac crest with Xeroform 4 x 4 and OpSite. dressing was applied to incisional area with Mepilex Ag and an abduction pillow was placed. Patient tolerated the procedure well there was no intraoperative complications all counts were correct and the patient was brought back to the PACU in stable condition
[2021-06-18] MEDS: Lactated Ringers 1,000 ML 125 ML IV ×2 (10:46→16:48)
--- NOTE | 2021-06-18 14:02 | WOUNDNOTE ---
attends changed for large incontinence. patient is still very sleepy from surgery. purewick placed. buttocks without redness or irritation. pt tolerated well.
[2021-06-18] MEDS: oxyCODONE 5 MG Tablet PO ×2 (14:19→21:36)
[2021-06-18] MEDS: Lactated Ringers 1,000 ML 15 ML IV (15:49)
[2021-06-18] MEDS: Senna/Docusate Sodium 1 Tablet 2 TABLET PO (21:10)
[2021-06-19] VITALS (7 sets, daily range): BP systolic 114–131; BP diastolic 60–77; PULSE 79–90; RESP 16–18; TEMP 36.7–37.1; O2SAT 94–98
[2021-06-19 04:47] LABS: Hematocrit 31.1 % (37-47); Hemoglobin 10.2 g/dL (12.0-15.0); Mean Corp Hgb Conc 32.8 g/dL (32-36); Mean Corpuscular Hgb 30.7 pg (27.0-32.0); Mean Corpuscular Volume 93.7 fL (81-99); Mean Platelet Vol. 9.8 fl (6.2-12.0); Platelet Count 249 K/mm3 (150-450); RBC Distribution Width CV 14.2 % (11.6-14.6); RBC Distribution Width SD 48.9 fl (35.1-43.9); Red Blood Count 3.32 M/mm3 (4.2-5.4); White Blood Count 13.9 K/mm3 (4.4-11.0)
[2021-06-19 05:11] LABS: Anion Gap 4 (5-15); BUN 14 mg/dL (7-18); BUN/Creat Ratio 16.2 RATIO (10-20); Calcium,Total 8.4 mg/dL (8.5-10.1); Chloride 106 mmol/L (98-107); Creatinine, Serum 0.86 mg/dL (0.55-1.02); EST Glomerular Filtration Rate 70 mL/min (>60); Est Glom Filt Rate - Afr Amer 85 mL/min (>60); Estimated Creatinine Clearance 53.23 ml/min; Glucose 162 mg/dL (74-106); Potassium 4.5 mmol/L (3.5-5.1); Sodium Level 135 mmol/L (136-145)
[2021-06-19] MEDS: Acetaminophen 500 MG Tablet 1000 MG PO ×3 (06:25→22:27)
[2021-06-19] MEDS: APIXABAN 2.5 MG TABLET PO ×2 (06:26→22:27)
[2021-06-19] MEDS: Ascorbic Acid 500 MG Tablet PO (08:12)
[2021-06-19] MEDS: Cholecalciferol (VIT D3) 25 MCG TABLET (1,000 UNITS) PO (08:12)
[2021-06-19] MEDS: guaiFENesin 600 MG Tablet PO (08:13)
[2021-06-19] MEDS: Magnesium Chloride 64 MG Delay Rel.Tablet 128 MG PO (08:13)
[2021-06-19] MEDS: amLODIPine 5 MG Tablet PO (08:13)
[2021-06-19] MEDS: Senna/Docusate Sodium 1 Tablet 2 TABLET PO ×2 (08:13→22:27)
--- NOTE | 2021-06-19 10:50 | CASEMGMT ---
RN WILFRIDO Face to Face with patient for initial transition planning/care coordination assessment. RN CM introduced self and role at [facility]. Patient sitting in chair, alert and oriented. Patient willing to participate in assessment and is able to answer all questions appropriately. Care providers, pharmacy, and demographics verified. Patient wishes to discharge home with HHC. Patient provided with list and states [facility]. Patient states she has no further needs or concerns at this time. CM to follow for discharge planning needs that may arise. PCP: Meri Specialists: ivanna Oviedo GI Preferred Pharmacy: [facility] retail at discharge. Insurance: MMO [facility] Prescription Benefit: yes Living Will/HPOA: none LNOK: son Living Arrangements: Patient lives alone in a single story home with 1 step and railing to enter the home. Patient states she was independent at home prior to surgery Transportation: son DME/HHC: Patient states she has raised toilet, cane, walker, hip kit, and grab bars at home. Patient denies previous HHC or SNF. CM to make referral to C. Disposition Plan: Patient to discharge home with [facility], family support, and follow-up plans in place. Zully CHAHAL, RN, CM
--- NOTE | 2021-06-19 11:00 | CASEMGMT ---
DEBO CM in to complete ECHOLS form with patient. RN WILFRIDO explained ECHOLS form to patient, patient voiced understanding. Patient signed ECHOLS form and filed in chart. Patient provided with copy of signed ECHOLS form. Patient had no further questions or concerns at this time.
--- NOTE | 2021-06-19 14:08 | CASEMGMT ---
Addendum entered by Josefa Tim 06/19/21 14:34: Received acceptance from [facility], will plan SOC on Thursday. Pt notified of this and provided information on the hospital van for transportation. Original Note: TC martin Hudson at [facility] to make referral for PT. Referral made, she will call back with acceptance.
[2021-06-19] MEDS: oxyCODONE 5 MG Tablet PO ×2 (17:31→22:29)
[2021-06-20 04:00] VITALS: BP 128/62; PULSE 90; RESP 16; TEMP 37.1; O2SAT 94
[2021-06-20] MEDS: oxyCODONE 5 MG Tablet PO (05:21)
[2021-06-20] MEDS: Acetaminophen 500 MG Tablet 1000 MG PO (05:21)
[2021-06-20 06:13] LABS: Hematocrit 30.8 % (37-47); Hemoglobin 10.1 g/dL (12.0-15.0); Mean Corp Hgb Conc 32.8 g/dL (32-36); Mean Corpuscular Hgb 31.5 pg (27.0-32.0); Platelet Count 261 K/mm3 (150-450); RBC Distribution Width CV 14.5 % (11.6-14.6); RBC Distribution Width SD 50.5 fl (35.1-43.9); Red Blood Count 3.21 M/mm3 (4.2-5.4); White Blood Count 11.8 K/mm3 (4.4-11.0)
--- NOTE | 2021-06-20 07:34 | PCM.PN.ORT ---
Subjective Subjective Patient seen and examined doing well pain controlled ambulating with physical therapy she feels she is stable to go home Objective Data Objective Data Vital Signs: Vital Signs Temp Pulse Resp BP Pulse Ox 98.8 F 90 16 128/62 H 94 06/20/21 04:00 06/20/21 04:00 06/20/21 04:00 06/20/21 04:00 06/20/21 04:00 Oxygen Flow Rate (L/min) 2 Oxygen Delivery Method Room Air Weight: 235 lb 10.786 oz Body Mass Index (BMI) 41.1 Intake & Output: Intake and Output for Last 24 Hours 06/18/21 06/19/21 06/20/21 23:59 23:59 23:59 Intake Total 3049.33 / 3849.33 2752.75 / 2752.75 Output Total 400 / 1900 2700 / 3900 2800 / 2800 Balance 2649.33 / 1949.33 52.75 / -1147.25 -2800 / -2800 Lab / Micro Data Result Diagrams: 06/20/21 05:34 06/19/21 04:26 Labs: Laboratory Results - last 24 hr 06/20/21 05:34: WBC 11.8 H, RBC 3.21 L, Hgb 10.1 L, Hct 30.8 L, MCV 96.0, MCH 31.5, MCHC 32.8, RDW Std Deviation 50.5 H, RDW Coeff of Angeline 14.5, Plt Count 261, MPV 10.0 Micro: Microbiology 06/17/21 12:08 Interface Orders SARS-CoV-2 Antigen (Rapid) - Final 06/05/21 09:28 Swab (Method) Nasal Screen MRSA/MSSA - Final Physical Exam Const alert and oriented x3 General Appearance: cooperative Extremity Extremity Narrative: Dressing clean dry and intact compartments soft neurovascular intact EHL tibialis anterior gastrocsoleus intact and station light touch palpable pedal pulses Assessment & Plan Assessment/Plan (1) Osteoarthritis of left hip: QUALIFIERS: Osteoarthritis type: primary Qualified Code(s): M16.12 - Unilateral primary osteoarthritis, left hip PLAN: Postop day #2 left total hip arthroplasty. Patient lives alone and was not able to be approved for an admission by her insurance or rehab by her insurance they did however approve a 48-hour observation. Therefore based on her request she was kept the length of time allowed and will be discharged home with home physical therapy. She will follow-up in the office in 2 weeks for staple removal and wound check she will continue her Eliquis 2.5 mg twice daily for 3 weeks postop.
--- NOTE | 2021-06-20 07:36 | PCM.DC ---
Discharge Instructions Diet Discharge Diet: No restrictions Dressing / Incision Call your doctor if you observe: Fever of 101 or Higher, Shortness of breath and Chest pain Additional Dressing/Incision Instructions:: Do not shower 4 days postop. Begin daily showering warm water antibacterial soap postop day #4 and then daily. Leave the dressing on for 4 days postoperatively then may remove prior to first shower and change dressing daily after this until no drainage for 2 consecutive days then may leave open to air. Follow hip precautions that were reviewed in hospital. Wear compression stockings, may remove at night. Start physical therapy as directed in hospital. Follow prescriptions instructions do not take any other pain medication or differ dosing without consulting your physician. Do not take oral NSAIDs until blood thinner has been completed , then may begin the day after completion if needed . Call Dr. Oviedo's office with any concerns. Since you already have a prescription for Tylenol 1 will not be dispensed but he should be taking 1000 mg of Tylenol acetaminophen every 6 hours [id number]. Do not take oxycodone and previously taken hydrocodone together. Only take pain medication that was prescribed by Dr. Oviedo unless counseled further. Follow Up Care Please Follow Up With: Leonel Oviedo DO When: 2 weeks Test Results: Test results from this visit will be discussed in further detail at your follow-up appointment, if applicable. Discharge Plan Admission Admit Date/Time: 06/18/21 10:21 Primary Reason for Your Visit: Left total hip arthroplasty Attending Provider: Leonel Oviedo Primary Care Provider: Allyn Campos Discharge Orders/Prescriptions Prescriptions: New oxycodone 5 mg Tablet 5 - 10 mg PO Q4H PRN PRN (Reason: Pain Score 4-10) 7 Days Qty: 60 RF: 0 Eliquis 2.5 mg Tablet 2.5 mg PO BID 21 Days Qty: 42 RF: 0 Continued cholecalciferol (vitamin D3) 25 mcg (1,000 unit) capsule 25 mcg PO DAILY RF: 0 zinc gluconate 50 mg tablet 50 mg PO DAILY RF: 0 ascorbic acid (vitamin C) 500 mg capsule 500 mg PO DAILY RF: 0 omega 3-umt-yvf-fish oil [Fish Oil] 300-1,000 mg capsule 1 cap PO DAILY RF: 0 glucosamine HCl 500 mg tablet 500 mg PO DAILY RF: 0 guaifenesin [Mucinex] 600 mg tablet extended release 12hr 600 mg PO DAILY RF: 0 amlodipine 5 MG tablet 5 mg PO DAILY RF: 0 acetaminophen [Tylenol] 325 mg Tablet 650 mg PO Q6H PRN (Reason: Pain) RF: 0 vitamin B complex Tablet 1 tab PO DAILY RF: 0 magnesium 200 mg Tablet 400 mg PO DAILY RF: 0 Bioflex 574-92-44-40 mg Tablet 1 tab PO DAILY RF: 0 Discontinued hydrocodone-acetaminophen 1 EACH tablet 0.5 - 1 tab PO BID PRN PRN (Reason: mod pain) RF: 0 Other Ambulatory Orders: Magnesium (Routine) Timeframe: [id number] Facility: [facility] [place] - Location: Laboratory Ordered By: Dr. Kenny Roy Referrals / Follow Up: Allyn Campos MD [Primary Care Provider] - Disposition Disposition (needs filled in before D/C Order can be placed): Home Health Service
--- NOTE | 2021-06-20 07:43 | DS.PCM_ITS ---
Providers Date of Admission: 06/18/21 Primary Care Physician: Dr. Allyn Campos MD Reason For Visit: LT TOTAL HIP W ESTUARDO Diagnosis Discharge Diagnosis (1) Osteoarthritis of left hip: Status: Acute Code(s): M16.12 - Unilateral primary osteoarthritis, left hip Qualifiers: Osteoarthritis type: primary Qualified Code(s): M16.12 - Unilateral primary osteoarthritis, left hip Medications at Discharge Home Medications amlodipine 5 mg PO DAILY 11/18/19 ascorbic acid (vitamin C) 500 mg capsule 500 mg PO DAILY 05/06/21 cholecalciferol (vitamin D3) 25 mcg (1,000 unit) capsule 25 mcg PO DAILY 05/06/21 glucosamine HCl 500 mg tablet 500 mg PO DAILY 05/06/21 guaifenesin 600 mg tablet, extended release 12 hr 600 mg PO DAILY 05/06/21 omega 8-rdx-cva-fish oil 300 mg-1,000 mg capsule 1 cap PO DAILY 05/06/21 zinc gluconate 50 mg tablet 50 mg PO DAILY 05/06/21 Bioflex 1 tab PO DAILY 06/04/21 acetaminophen [Tylenol] 650 mg PO Q6H PRN 06/04/21 magnesium 400 mg PO DAILY 06/04/21 vitamin B complex 1 tab PO DAILY 06/04/21 apixaban [Eliquis] 2.5 mg PO BID 21 Days #42 tab 06/20/21 oxycodone 5 - 10 mg PO Q4H PRN PRN 7 Days #60 tab 06/20/21 Hospital Course Summary of Care Provided Hospital Course: Patient with long-standing history of severe [left] hip DJD who is failed conservative treatment. Patient underwent left total hip arthroplasty day of admission. Patient did receive pre-and postoperative antib iotics which were discontinued within 23 hours postoperatively. Patient did receive spinal anesthesia and postoperatively her pain was controlled with both IV and p.o. pain medication. Patient did receive 2 g of tranexamic acid. Her hemoglobin and hematocrit were monitored postoperatively as well as her vital signs and she did not require any blood transfusion. . Dressing will be changed daily beginning postop day #4 before shower will be removed and replaced after. Pt was started on Eliquis 2.5 mg twice daily postop day #1 for which will continue for 3 weeks post hospital discharge . Patient was seen by physical therapy was ambulating the halls well. patient will be discharged home with home health detention physical therapy will follow-up in the office in 2 weeks. No intrahospital complications. Weight / BMI Weight Weight: 235 lb 10.786 oz Body Mass Index (BMI) 41.1 ABG / Lab / Microbiology Data Result Diagrams: 06/20/21 05:34 06/19/21 04:26 Laboratory: Laboratory Results - last 24 hr 06/20/21 05:34: WBC 11.8 H, RBC 3.21 L, Hgb 10.1 L, Hct 30.8 L, MCV 96.0, MCH 31.5, MCHC 32.8, RDW Std Deviation 50.5 H, RDW Coeff of Angeline 14.5, Plt Count 261, MPV 10.0 Microbiology: Microbiology 06/17/21 12:08 Interface Orders SARS-CoV-2 Antigen (Rapid) - Final 06/05/21 09:28 Swab (Method) Nasal Screen MRSA/MSSA - Final D/C Instructions Discharge Diet: No restrictions Call your doctor if you observe: Fever of 101 or Higher, Shortness of breath and Chest pain Additional Dressing/Incision Instructions: Do not shower 4 days postop. Begin daily showering warm water antibacterial soap postop day #4 and then daily. Leave the dressing on for 4 days postoperatively then may remove prior to first shower and change dressing daily after this until no drainage for 2 consecutive days then may leave open to air. Follow hip precautions that were reviewed in hospital. Wear compression stockings, may remove at night. Start physical therapy as directed in hospital. Follow prescriptions instructions do not take any other pain medication or differ dosing without consulting your physician. Do not take oral NSAIDs until blood thinner has been completed , then may begin the day after completion if needed . Call Dr. Oviedo's office with any concerns. Since you already have a prescription for Tylenol 1 will not be dispensed but he should be taking 1000 mg of Tylenol acetaminophen every 6 hours [id number]. Do not take oxycodone and previously taken hydrocodone together. Only take pain medication that was prescribed by Dr. Oviedo unless counseled further. Please Follow Up With: Leonel Oviedo DO When: 2 weeks Meaningful Use Info Meaningful Use Diagnoses (Choose all that apply): None applicable Discharge Plan Admission Admit Date/Time: 06/18/21 10:21 Primary Reason for Your Visit: Left total hip arthroplasty Attending Provider: Leonel Oviedo Primary Care Provider: Allyn Campos Discharge Orders/Prescriptions Prescriptions: New oxycodone 5 mg Tablet 5 - 10 mg PO Q4H PRN PRN (Reason: Pain Score 4-10) 7 Days Qty: 60 RF: 0 Eliquis 2.5 mg Tablet 2.5 mg PO BID 21 Days Qty: 42 RF: 0 Continued cholecalciferol (vitamin D3) 25 mcg (1,000 unit) capsule 25 mcg PO DAILY RF: 0 zinc gluconate 50 mg tablet 50 mg PO DAILY RF: 0 ascorbic acid (vitamin C) 500 mg capsule 500 mg PO DAILY RF: 0 omega 1-flm-tnw-fish oil [Fish Oil] 300-1,000 mg capsule 1 cap PO DAILY RF: 0 glucosamine HCl 500 mg tablet 500 mg PO DAILY RF: 0 guaifenesin [Mucinex] 600 mg tablet extended release 12hr 600 mg PO DAILY RF: 0 amlodipine 5 MG tablet 5 mg PO DAILY RF: 0 acetaminophen [Tylenol] 325 mg Tablet 650 mg PO Q6H PRN (Reason: Pain) RF: 0 vitamin B complex Tablet 1 tab PO DAILY RF: 0 magnesium 200 mg Tablet 400 mg PO DAILY RF: 0 Bioflex 324-74-74-40 mg Tablet 1 tab PO DAILY RF: 0 Discontinued hydrocodone-acetaminophen 1 EACH tablet 0.5 - 1 tab PO BID PRN PRN (Reason: mod pain) RF: 0 Other Ambulatory Orders: Magnesium (Routine) Timeframe: [id number] Facility: [facility] - Location: Laboratory Ordered By: Dr. Kenny Roy Referrals / Follow Up: Allyn Campos MD [Primary Care Provider] - Disposition Disposition (needs filled in before D/C Order can be placed): Home Health Service
[2021-06-20 08:01] VITALS: BP 125/84; PULSE 81; RESP 18; TEMP 36.6; O2SAT 96
[2021-06-20] MEDS: Magnesium Chloride 64 MG Delay Rel.Tablet 128 MG PO (08:09)
[2021-06-20] MEDS: Senna/Docusate Sodium 1 Tablet 2 TABLET PO (08:09)
[2021-06-20] MEDS: amLODIPine 5 MG Tablet PO (08:09)
[2021-06-20] MEDS: guaiFENesin 600 MG Tablet PO (08:09)
[2021-06-20] MEDS: Cholecalciferol (VIT D3) 25 MCG TABLET (1,000 UNITS) PO (08:09)
[2021-06-20] MEDS: APIXABAN 2.5 MG TABLET PO (08:09)
[2021-06-20] MEDS: Ascorbic Acid 500 MG Tablet PO (08:10)
[2021-06-20 09:25] VITALS: O2SAT 95
== END 2021-06-20 10:40 | disposition home health service (06) ==
LOC: SDC 10:27 → MS3 10:27
PROVIDERS: Admitting Provider Orthopaedic Surgery; PCP Family Medicine; Referring Provider Orthopaedic Surgery; Visit Provider Orthopaedic Surgery
PROC: 8E0Y0CZ Robotic Assisted Procedure of Lower Extremity, Open Approach (ICD-10-PCS; CPT 27130; principal; 2021-06-18 07:00)
DX: M16.12 Unilateral primary osteoarthritis, left hip (principal); I10 Essential (primary) hypertension; F17.210 Nicotine dependence, cigarettes, uncomplicated; F32.A Depression, unspecified; Z79.899 Other long term (current) drug therapy; Z79.891 Long term (current) use of opiate analgesic
CPT/HCPCS: 27130; S2900; 01214; 36415; 73502; 80048; 82962; 82985; 83735; 85025; 85027; 85610; 85730; 86850; 86900; 86901; 87081; 87426; 88305; 88311; 93005; 96361; 96365; 96366; 97110; 97116; 97162; 97166; 97530; 97535; 99218; 99251; 99406; C1776; C9803; J7040; J7120; G0378; G0463; J2405

== ENCOUNTER 2021-08-14 10:30 | Outpatient (RCR) | payer MEDICARE, SELFPAY ==
--- NOTE | 2021-07-23 10:51 | HP.PTEVAL_ITS ---
Patient's Visit Information HIGINIO JEREZ is a 66 year old F referred to Physical Therapy by NORA Calderon with a diagnosis of L JEFFRY DOS: 06/18/21. Date of Evaluation: 07/23/21 Physical Therapist: Antonio Rondon DPT - Visit Plan Frequency: 2x /Week Duration: 4 Weeks Plan: Start with ROM progress of L hip as tolerated, progress functional LE strengthening. Focus on glute, quad and glute med strengthening. Work on improving gait to reduce Trendelenburg. JEFFRY posterior/lateral approach 06/18/21. HEP: 07/23/21: standing heel raises x30, supine clamshell OTB 3x10, supine bridge x30, repeated sit to stand 3x10, standing hip abd OTB 3x10 LLE - Subjective Pt. is here today for her initial evaluation with diagnosis of L JEFFRY. DOS: 06/18/21 Posterior/lateral approach. Pt. arrives with use of walking stick with good use. Pt. reports having home health without issues. She is walking x3 daily at local stores, I just really like to get out. She is sleeping in her bed without issues. She does use a walker at home, but report doing so to carry objects rather than for stability. She reports no pain currently. Denies N/T. She has been keeping up with her HH HEP well. 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 She is hopeful to get back to working [employer]. She reports that her pain is significantly better than it was pre surgery. She is to follow up with physician next week. - Pain L hip Pain Intensity (Out of 10): 1 Pain Intensity Range: 0, 2 Comment: mostly musculature. - Objective POSTURE: Pt. has slight flexed posture in stance. Slight wt. shift to R side in stance without AD, no lateral wt. shift with use of AD. PALPATION: pt. has tenderness along L greater trochanter and along posterior/lateral incision. No signs of infection with incision. Pt. has negative Sana's sign. NEURO: Pt. has normal sensation to light and sharp touch in BLEs throughout. Pt. has 2+ DTR of B Achilles and Patellar tendons. ROM: L hip: flexion 90deg (slight tightness), abd 30deg slight tightness, extension 0deg. IR 5deg, ER 30deg tightness noted. Quad and HS tightness noted as well. MMT: RLE: ankle 5/5 throughout; knee: ext 35#, flexion 28#; hip: flexion 18#, abd 17#, ext 14#. LLE: ankle 5/5 throughout; knee: ext 32#, flexion 26#; hip: flexion 8#, abd 1#, ext 13#. TUG: With\ - Balance/Special Test Scores Lower Extremity Functional Score: 15 WOMAC Total Score: 27 WOMAC Percentatge: 71.8800 - Goals Goal 1:: LTG: Pt. to be I with HEP for LE strengthening with focus on glute max/med, quad and core strength. Goal Time Frame: 4-6 Weeks Goal 2:: LTG: Pt. to have increased L hip extensor, abductor and quad strength increased by 10# allowing for increased ability to complete gait and all functional mobility. Goal Time Frame: 4-6 Weeks Goal 3:: LTG: Pt. to complete TUG without Ad in less than 8 seconds indicating increased I with functional mobility. Goal Time Frame: 4-6 Weeks Goal 4:: STG: Pt. to ambulate with improved gait pattern, with decreased L Trendelenburg allowing for increased safety with walking in community and work. Goal Time Frame: 2-4 Weeks Goal 5:: LTG: Pt. to tolerate standing/walking for 2+ hours at a time allowing for her to tolerate all of her work related activities. Goal Time Frame: 4-6 Weeks Goal 6:: LTG: Pt. to have increased L hip ROM allowing for better tolerance with bending over and with Lower body dressing/ don and doffing socks and shoes. Goal Time Frame: 4-6 Weeks - Rehabilitation Potential Physical Therapy Diagnosis: Pt. has signs and symptoms consistent with L JEFFRY. She is tolerating surgery well. She is walking well with walking stick, but has marked Trendelenburg without AD suggesting lateral hip weakness. She would benefit from PT to increase glute/hip strength, increase gait mechanics and progress stair negotiation. Rehabilitation Potential: Excellent - Anticipated Interventions Patient/Client Instruction: Educate patient on: Condition, Plan of Care, Risk Factors, Benefits of Fitness Program For the Purpose of:: To improve decision making, To facilitate caregiver knowledge, To improve self management Therapeutic Exercise to Include: Strength training, Power training, Balance training, Coordination, Postural training, Flexibilty training, Gait and locomotor training, Dynamic Lumbar Stabilization For the Purpose of:: To decrease pain, To increase ROM, To improve nutrient delivery to tissue, To increase oxygenation perfusion, To improve muscle performance and motor function, To improve ability to perform ADL's, To increase tolerance to activity/condition/position, To improve ability of physical actions for home/community/work/leisure, To improve gait and locomotor functions, To improve health of tissue, To decrease soft tissue restriction, To increase flexibility/ROM, To improve endurance, To improve balance Cryotherapy (ice pack, ice massage): Yes Thermo therapy (hot pack): Yes For the Purpose of:: To decrease pain, To increase ROM Thank you for the opportunity to evaluate your patient. For Medicare and Medicare HMO plans, please review the plan of care and approve it. It will need to be FAXED BACK to us at [phone] for Medicare purposes. For Medicare only, by signing this I certify the plan of care. Please let me know if there are questions or concerns regarding this plan of care. Physician Signature: Date:
== END 2021-08-14 19:00 | disposition home or self-care (01) ==
LOC: PT 10:30
PROVIDERS: PCP Family Medicine; Referring Provider Physician Assistant; Visit Provider Physician Assistant
DX: Z96.642 Presence of left artificial hip joint (principal)
CPT/HCPCS: 97110; 97161

== ENCOUNTER → 2021-08-20 | Outpatient (CLI) | payer MEDICARE, SELFPAY ==
--- NOTE | 2021-08-20 10:39 | BI_ITS ---
MAMMOGRAPHY - BILATERAL SCREENING REASON FOR EXAM: Female, 66 years old. Routine annual screening examination. PERTINENT HISTORY: Mother with breast cancer. TECHNIQUE: Digital bilateral breast leela (3D mammographic acquisition) in the CC and MLO projections. 2-D mediolateral oblique (MLO) and craniocaudad (CC) views of both breasts were obtained. CAD: Full Field Digital Mammography with Computer Added Detection was performed. COMPARISON: Comparison is made with prior outside examination of 07/22/2005. FINDINGS: Breast Composition: There are scattered areas of fibroglandular density. There are no dominant masses or suspicious calcifications. Stable small benign-appearing bilateral axillary lymph nodes. No other significant abnormalities are identified. There has been no significant change since the prior study. BI/SCRN MAMM (CAD)W/LEELA BILAT IMPRESSION: Stable bilateral screening mammogram. Yearly follow-up mammogram recommended. (A) ASSESSMENT CATEGORY: BIRADS Category 2: Benign. A letter regarding these results will be sent to the patient by the facility within 30 days. Approximately 10% of breast cancers are not detected by mammography. A normal mammogram should not delay biopsy of a clinically suspicious abnormality. [id number] Electronically Signed: Daniel Goncalves MD at 9:54 EDT ,
== END | disposition home or self-care (01) ==
LOC: OPBI 10:37
PROVIDERS: PCP Family Medicine; Visit Provider Family Medicine
DX: Z12.31 Encounter for screening mammogram for malignant neoplasm of breast (principal); Z80.3 Family history of malignant neoplasm of breast
CPT/HCPCS: 77063; 77067

== ENCOUNTER → 2021-10-01 | Outpatient (CLI) | payer MEDICARE, SELFPAY ==
[2021-10-01 14:57] LABS: Absolute Lymphocyte Count 2.42 X10^3/uL (0.83-4.51); Absolute Neutrophil Count 5.1 X10^3/uL (2.0-7.7); Basophil# 0.08 X10^3/uL; Basophil% 0.9 % (0-1); Eosinophils% 3.5 % (0-5); Hematocrit 40.4 % (37-47); Hemoglobin 12.9 g/dL (12.0-15.0); Lymphocyte # 2.42 X10^3/ul (0.83-4.51); Mean Corp Hgb Conc 31.9 g/dL (32-36); Mean Platelet Vol. 9.6 fl (6.2-12.0); Monocyte# 0.75 X10^3/uL; Monocyte% 8.7 % (0-10); NRBC Flagged by Analyzer 0 % (0-5); Neutrophil # 5.07 X10^3/uL (2.7-7.7); Neutrophil % 58.6 % (47-70); Platelet Count 366 K/mm3 (150-450); RBC Distribution Width CV 14.4 % (11.6-14.6); RBC Distribution Width SD 49.9 fl (35.1-43.9); White Blood Count 8.7 K/mm3 (4.4-11.0)
[2021-10-01 15:24] LABS: ALB/GLOB Ratio 0.7 RATIO (0.9-2.4); AST(SGOT) 20 U/L (15-37); Alanine Aminotransfer ALT/SGPT 25 U/L (13-56); Albumin, Serum 3.2 g/dL (3.2-5.0); Alkaline Phosphatase 93 U/L (45-117); Anion Gap 8 (5-15); BUN 8 mg/dL (7-18); BUN/Creat Ratio 9.4 RATIO (10-20); Calcium,Total 8.4 mg/dL (8.5-10.1); Chloride 105 mmol/L (98-107); Creatinine, Serum 0.85 mg/dL (0.55-1.02); EST Glomerular Filtration Rate 71 mL/min (>60); Est Glom Filt Rate - Afr Amer 86 mL/min (>60); Globulin 4.5 g/dL (2.2-4.2); Glucose 119 mg/dL (74-106); Potassium 3.4 mmol/L (3.5-5.1); Protein, Total 7.7 g/dL (6.4-8.2); Sodium Level 139 mmol/L (136-145); Thyroid Stim Hormone (TSH) 1.18 uIU/mL (0.358-3.74)
== END | disposition home or self-care (01) ==
LOC: MFPLAB 12:07
PROVIDERS: PCP Family Medicine; Referring Provider Family Medicine; Visit Provider Family Medicine
DX: M79.89 Other specified soft tissue disorders (principal)
CPT/HCPCS: 36415; 80053; 84443; 85025

== ENCOUNTER → 2021-10-07 | Outpatient (CLI) | payer MEDICARE, SELFPAY ==
[2021-10-07 18:04] LABS: Anion Gap 6 (5-15); BUN 10 mg/dL (7-18); BUN/Creat Ratio 11.5 RATIO (10-20); Chloride 107 mmol/L (98-107); Creatinine, Serum 0.87 mg/dL (0.55-1.02); EST Glomerular Filtration Rate 69 mL/min (>60); Est Glom Filt Rate - Afr Amer 83 mL/min (>60); Glucose 95 mg/dL (74-106); Potassium 3.6 mmol/L (3.5-5.1); Sodium Level 140 mmol/L (136-145)
== END | disposition home or self-care (01) ==
LOC: MFPLAB 16:42
PROVIDERS: PCP Family Medicine; Visit Provider Family Medicine
DX: M79.89 Other specified soft tissue disorders (principal)
CPT/HCPCS: 36415; 80048; 83880

== ENCOUNTER → 2022-07-22 | Outpatient (CLI) | payer MEDICARE, SELFPAY ==
[2022-07-22 17:05] LABS: Anion Gap 5 (5-15); BUN 11 mg/dL (7-18); BUN/Creat Ratio 12.2 RATIO (10-20); Calcium,Total 8.9 mg/dL (8.5-10.1); Chloride 108 mmol/L (98-107); Cholesterol 146 mg/dL (200); EST Glomerular Filtration Rate 66 mL/min (>60); Est Glom Filt Rate - Afr Amer 80 mL/min (>60); Glucose 94 mg/dL (74-106); High Density Lipoprotein 35 mg/dL; Potassium 3.8 mmol/L (3.5-5.1); Sodium Level 138 mmol/L (136-145); Triglycerides 248 mg/dL; Very Low Density Lipoprotein 50 mg/dL (5-40)
== END | disposition home or self-care (01) ==
LOC: MFPLAB 14:20
PROVIDERS: PCP Family Medicine; Referring Provider Family Medicine; Visit Provider Family Medicine
DX: I10 Essential (primary) hypertension (principal)
CPT/HCPCS: 36415; 80048; 80061

== ENCOUNTER → 2024-03-11 | Outpatient (CLI) | payer MEDICARE, SELFPAY ==
[2024-03-11 17:55] LABS: Absolute Lymphocyte Count 2.96 X10^3/uL (0.83-4.51); Absolute Neutrophil Count 6.4 X10^3/uL (2.0-7.7); Basophil% 0.9 % (0-1); Eosinophil# 0.21 X10^3/uL; Hemoglobin 13.6 g/dL (12.0-15.0); Lymphocyte # 2.96 X10^3/ul (0.83-4.51); Lymphocyte % 27.9 % (19-41); Mean Corp Hgb Conc 31.6 g/dL (32-36); Mean Corpuscular Hgb 29.8 pg (27.0-32.0); Mean Corpuscular Volume 94.1 fL (81-99); Mean Platelet Vol. 9.9 fl (6.2-12.0); Monocyte# 0.94 X10^3/uL; Monocyte% 8.9 % (0-10); NRBC Flagged by Analyzer 0 % (0-5); Neutrophil # 6.36 X10^3/uL (2.7-7.7); Neutrophil % 59.8 % (47-70); Platelet Count 334 K/mm3 (150-450); RBC Distribution Width CV 14.3 % (11.6-14.6); RBC Distribution Width SD 49.5 fl (35.1-43.9); Red Blood Count 4.57 M/mm3 (4.2-5.4); White Blood Count 10.6 K/mm3 (4.4-11.0)
[2024-03-11 18:14] LABS: Anion Gap 5 (5-15); BUN 16 mg/dL (7-18); BUN/Creat Ratio 15.8 RATIO (10-20); Calcium,Total 9.2 mg/dL (8.5-10.1); Chloride 106 mmol/L (98-107); Cholesterol 156 mg/dL (200); Creatinine, Serum 1.01 mg/dL (0.55-1.02); EST Glomerular Filtration Rate 58 mL/min (>60); Est Glom Filt Rate - Afr Amer 70 mL/min (>60); Glucose 98 mg/dL (74-106); High Density Lipoprotein 48 mg/dL; Sodium Level 138 mmol/L (136-145); Triglycerides 138 mg/dL; Very Low Density Lipoprotein 28 mg/dL (5-40)
== END | disposition home or self-care (01) ==
LOC: MFPLAB 15:51
PROVIDERS: PCP Family Medicine; Visit Provider Family Medicine
DX: E11.9 Type 2 diabetes mellitus without complications (principal); F32.A Depression, unspecified
CPT/HCPCS: 36415; 80048; 80061; 85025

== ENCOUNTER → 2024-10-03 | Outpatient (CLI) | payer MEDICARE, SELFPAY ==
--- OUTSIDE RECORDS SUMMARY | 2024-10-03 23:36 | XMS RPT_ITS | CCD ---
Author Organization [facility] Care Team Providers Care Bank Worker Name Role Phone Dr. Allyn Campos Primary Care Provider 1([facility])[phone] Dr. Allyn Campos Referring Provider 1([facility])[phone] Leonel Oviedo Attending Provider 1([facility])[phone] Dr. Robert Duff Attending Provider 1([facility])-[phone] Leonel Oviedo Referring Provider 1([facility])[phone] Dr. Leonel Oviedo Other Provider 1([facility])-[phone] Leonel Oviedo Admit Provider 1([facility])-[phone] NORA Barrera Attending Provider Dr. Allyn Campos Primary Care Provider 1([facility])[phone] Dr. Leonel Oviedo Attending Provider 1([facility])[phone] Dr. Leonel Oviedo Referring Provider 1([facility])[phone] Dr. Allyn Campos Referring Provider 1([facility])[phone] Robert Duff Attending Provider 1([facility])-[phone] Allyn Campos Primary Care Provider 1([facility])[phone] Dr. Allyn Campos Referring Provider [phone] Leonel Oviedo Attending Provider 1([facility])[phone] Allyn Campos Attending Unavailable Allyn Campos Primary Care Unavailable Allergies Allergy Classification Reported Allergen(s) Allergy Type Date of Onset Reaction(s) Facility (6 sources) Penicillins; Translations: [Penicillins] Allergy to substance 07-01-2021 [facility] Medications Current Medications Medication Drug Class(es) Dates Sig (Normalized) Sig (Original) acetaminophen 325 mg oral tablet (5 sources) Start: 06-04-2021 take 2 tablets by mouth every six hours Acetaminophen (Tylenol) 325 mg Tablet Active 650 MG PO EVERY 6 HOURS June 04, 2021 1:00am acetaminophen 325 mg / HYDROcodone bitartrate 5 mg oral tablet (10 sources) Opioid Agonist Start: 07-29-2021 Hydrocodone-Acetami nophen Active 1 TABLET PO July 29, 2021 12:00am Start: 11-18-2019 End: 06-20-2021 take 1 tablet by mouth twice daily as needed Hydrocodone-Acetaminophen Discontinued 0 .5 - 1 TABLET PO TWICE DAILY NEEDED November 18, 2019 12:00am June 20, 2021 8:38am amLODIPine 5 mg oral tablet (5 sources) Dihydropyridine Calcium Channel Sonia Start: 11-18-2019 take 5 mg by mouth once daily Amlodipine Active 5 MG PO DAILY November 18, 2019 12:00am ascorbic acid 500 mg oral capsule (5 sources) Vitamin C Start: 05-06-2021 take 500 mg by mouth once daily Ascorbic Acid (Vitamin C) Active 500 MG PO DAILY May 06, 2021 1:00am cholecalciferol 0.025 mg oral capsule (5 sources) Vitamin D Start: 05-06-2021 take 25 ug by mouth once daily Cholecalciferol (Vitamin D3) Active 25 MCG PO DAILY May 06, 2021 1:00am [place] 3-Fqk-Asz-Fish Oil (5 sources) Start: 05-06-2021 take 300-1000 mg by mouth once daily [place] 2-Zbu-Lmx-Fish Oil (Fish Oil) 300-1,000 mg capsule Active 1 CAP PO DAILY May 06, 2021 11:21am Start: 05-06-2021 take 300-1000 mg by mouth once daily [place] 6-Pnx-Pru-Fish Oil (Fish Oil) 300-1,000 mg capsule Active 1 CAP PO DAILY May 06, 2021 1:00am glucosamine 500 mg oral tablet (5 sources) Start: 05-06-2021 take 500 mg by mouth once daily Glucosamine Hcl Active 500 MG PO DAILY May 06, 2021 1:00am administer with a meal Magnesium (5 sources) Start: 06-04-2021 take 400 mg by mouth once daily Magnesium Active 400 MG PO DAILY June 04, 2021 12:08pm Start: 06-04-2021 take 400 mg by mouth once stacey y Magnesium Active 400 MG PO DAILY June 04, 2021 1:00am Vit F-Jqxqscg-Fczm-Rutin-Hb1 96 (Bioflex) 775-32-56-40 mg Tablet (5 sources) Start: 06-04-2021 take 1 tablet by mouth once daily Vit L-Lzfkaxv-Mtgb-Rutin-Hb196 (Bioflex) 878-37-16-40 mg Tablet Active 1 TABLET PO DAILY June 04, 2021 12:08pm Start: 06-04-2021 take 1 tablet by gab th once daily Vit A-Bicclov-Bhvr-Rutin-Hb196 (Bioflex) 012-42-42-40 mg Tablet Active 1 TABLET PO DAILY June 04, 2021 1:00am Vitamin B Complex (5 sources) Start: 06-04-2021 take 1 tablet by gab th once daily Vitamin B Complex Active 1 TABLET PO DAILY June 04, 2021 12:08pm Start: 06-04-2021 take 1 tablet by mouth once da pankaj Vitamin B Complex Active 1 TABLET PO DAILY June 04, 2021 1:00am zinc gluconate 50 mg oral tablet (5 sources) Start: 05-06-2021 take 50 mg by mouth once daily Zinc Gluconate Active 50 MG PO DAILY May 06, 2021 1:00am Completed/Discontinued Medications Medication Drug Class(es) Dates Sig (Normalized) Sig (Original) apixaban 2.5 mg oral tablet (5 sources) Factor Xa Inhibitor Start: 06-20-2021 End: 07-29-2021 take 1 tablet by mouth twice daily Apixaban (Eliquis) 2.5 mg Tablet Discontinued 2.5 MG PO TWICE A DAY 42 June 20, 2021 1:00am July 29, 2021 9:02am aspirin 81 mg delayed release oral tablet (5 sources) Platelet Aggregation Inhibitor, Nonsteroidal Anti-inflammatory Drug Start: 08-28-2020 End: 05-06-2021 take 1 tablet by mouth once daily Aspirin (Aspirin Low Dose) 81 mg Tablet,Delayed Release (Dr/Ec) Discontinued 81 MG PO DAILY August 28, 2020 12:00am May 06, 2021 11:20am ferrous sulfate 325 mg oral tablet (5 sources) Start: 08-28-2020 End: 05-06-2021 take 1 tablet by mouth once daily Ferrous Sulfate (Iron) 325 mg (65 mg iron) tablet Discontinued 325 MG PO DAILY August 28, 2020 12:00am May 06, 2021 11:22am 12 hr guaiFENesin 600 mg extended release oral tablet (5 sources) Start: 05-06-2021 End: 07-29-2021 take 1 tablet by mouth once daily, then take 1 tablet by mouth every twelve hours Guaifenesin (Mucinex) 600 mg tablet extended release 12hr Discontinued 600 MG PO DAILY May 06, 2021 1:00am July 29, 2021 9:02am oxyCODONE hydrochloride 5 mg oral tablet (10 sources) Opioid Agonist Start: 07-01-2021 End: 07-06-2021 take 5-10 mg by mouth every six hours Oxycodone Discontinued 5 - 10 MG PO EVERY 6 HOURS 40 5 July 01, 2021 July 06, 2021 1:04am Start: 06-20-2021 End: 07-01-2021 take 5-10 mg by mouth every four hours as needed Oxycodone Discontinued 5 - 10 MG PO EVERY 4 HOURS NEEDED 60 7 June 20, 2021 July 01, 2021 10:08am Problems Problem Classification Problem Date Documented Da te Episodic/Chronic Deficiency and other anemia (5 sources) Anemia; Translations: [Anemia, unspecified] 08-29-2020 Episodic Diabetes mellitus without complication (1 source) Type 2 diabetes mellitus without complications; Translations: [Type 2 diabetes mellitus without complications] Onset: Chronic Gastrointestinal hemorrhage (5 sources) Acute lower gastrointestinal hemorrhage; Translations: [Gastrointestinal hemorrhage, unspecified] 08-29-2020 Episodic Osteoarthritis (9 sources) Osteoarthritis of left hip joint; Translations: [Unilateral primary osteoarthritis, left hip] Chronic Other aftercare (5 sources) Follow-up status; Translations: [Encounter for other orthopedic aftercare] 08-23-2021 Episodic Other aftercare (4 sources) Encounter for other orthopedic aftercare; Translations: [Unspecified orthopedic aftercare] Episodic Other connective tissue disease (5 sources) History of total hip arthroplasty; Translations: [Presence of left artificial hip joint] 07-01-2021 Chronic Other connective tissue disease (6 sources) Presence of left artificial hip joint; Translations: [Hip joint replacement] Chronic Other nervous system disorders (5 sources) Acute postoperative pain; Translations: [Other acute postprocedural pain] 06-20-2021 Episodic Results Test Name Value Interpretation Reference Range Facility Basic Metabolic Profile (BMP )on 03-11-2024 BUN/CRE 15.8 RATIO Normal 10-20 [facility] Comment on above: Order Comment: A1C D ONE IN OFFICE URINE UTO Performed By: #### L 100.0100, L500.2500, L500.4100 #### [facility] [address] [place], [address] CA,Total 9.2 mg/dL Normal 8.5-10.1 [facility] Comment on above: Order Comment: A1C D ONE IN OFFICE URINE UTO Performed By: #### L 100.0100, L500.2500, L500.4100 #### [facility] [address] [place], [address] Chloride [Moles/Vol] 106 mmol/L Normal 98-107 [facility] Comment on above: Order Comment: A1C D ONE IN OFFICE URINE UTO Performed By: #### L 100.0100, L500.2500, L500.4100 #### [facility] [address] [place], [address] CO2 [Moles/Vol] 27.0 mmol/L Normal 21.0-32.0 [facility] Comment on above: Order Comment: A1C D ONE IN OFFICE URINE UTO Performed By: #### L 100.0100, L500.2500, L500.4100 #### [facility] [address] [place], [address] Creatinine [Mass/Vol] 1.01 mg/dL Normal 0.55-1.02 [facility] Comment on above: Order Comment: A1C D ONE IN OFFICE URINE UTO Result Comment: The validity of the calculated GFR GFRAA in patients over 70 years has not been determined. Clinical correlation is essential. Performed By: #### L 100.0100, L500.2500, L500.4100 #### [facility] [address] [place], [address] EST GFR - AA 70 mL/min Normal >60 [facility] Comment on above: Order Comment: A1C D ONE IN OFFICE URINE UTO Result Comment: Afri can Iranian GFR Calc Performed By: #### L 100.0100, L500.2500, L500.4100 #### [facility] [address] [place], [address] GAP 5 Normal 5-15 [facility] Comment on above: Order Comment: A1C D ONE IN OFFICE URINE UTO Performed By: #### L 100.0100, L500.2500, L500.4100 #### [facility] [address] [place], [address] GFR/1.73 sq M.predicted among non-blacks MDRD (S/P/Bld) [Vol rate/Area] 58 mL/min/{1.73_m2} Low >60 [facility] Comment on above: Order Comment: A1C D ONE IN OFFICE URINE UTO Result Comment: Non- GFR Calc Performed By: #### L 100.0100, L500.2500, L500.4100 #### [facility] [address] [place], [address] Glucose [Mass/Vol] 98 mg/dL Normal 74-106 [facility] Comment on above: Order Comment: A1C D ONE IN OFFICE URINE UTO Performed By: #### L 100.0100, L500.2500, L500.4100 #### [facility] [address] [place], [address] Potassium [Moles/Vol] 4.0 mmol/L Normal 3.5-5.1 [facility] Comment on above: Order Comment: A1C D ONE IN OFFICE URINE UTO Performed By: #### L 100.0100, L500.2500, L500.4100 #### [facility] [address] [place], [address] Sodium [Moles/Vol] 138 mmol/L Normal 136-145 [facility] Comment on above: Order Comment: A1C D ONE IN OFFICE URINE UTO Performed By: #### L 100.0100, L500.2500, L500.4100 #### [facility] [address] [place], [address] Urea nitrogen [Mass/Vol] 16 mg/dL Normal 7-18 [facility] Comment on above: Order Comment: A1C D ONE IN OFFICE URINE UTO Performed By: #### L 100.0100, L500.2500, L500.4100 #### [facility] [address] [place], [address] CBC W/Diff, Automatedon 02-25 Absolute Lymph 2.96 X10 3/uL Normal 0.83-4.51 [facility] Comment on above: Performed By: #### L 100.0100, L500.2500, L500.4100 #### [facility] [address] [place], [address] Absolute Neut 6.4 X10 3/uL Normal 2.0-7.7 [facility] Comment on above: Performed By: #### L 100.0100, L500.2500, L500.4100 #### [facility] [address] [place], [address] Basophils/100 WBC (Bld) 0.9 % Normal 0-1 [facility] Comment on above: Performed By: #### L 100.0100, L500.2500, L500.4100 #### [facility] [address] [place], [address] Eosinophils/100 WBC (Bld) 2.0 % Normal 0-5 [facility] Comment on above: Performed By: #### L 100.0100, L500.2500, L500.4100 #### [facility] [address] [place], [address] Erythrocyte distribution width (RBC) [Ratio] 14.3 % Normal 11.6-14.6 [facility] Comment on above: Performed By: #### L 100.0100, L500.2500, L500.4100 #### [facility] [address] [place], [address] Hematocrit (Bld) [Volume fraction] 43.0 % Normal 37-47 [facility] Comment on above: Performed By: #### L 100.0100, L500.2500, L500.4100 #### [facility] [address] [place], [address] Hemoglobin (Bld) [Mass/Vol] 13.6 g/dL Normal 12.0-15.0 [facility] Comment on above: Performed By: #### L 100.0100, L500.2500, L500.4100 #### [facility] [address] [place], [address] IG% 0.500 Normal 0.0-0.9 [facility] Comment on above: Result Comment: IG% - Immature Granulocytes (promyelocytes, myelocytes and metamyelocytes) > 1% indicates that a LEFT SHIFT is Present. Performed By: #### L 100.0100, L500.2500, L500.4100 #### [facility] [address] [place], [address] Lymphocytes/100 WBC (Bld) 27.9 % Normal 19-41 [facility] Comment on above: Performed By: #### L 100.0100, L500.2500, L500.4100 #### [facility] [address] [place], [address] MCH (RBC) [Entitic mass] 29.8 pg Normal 27.0-32.0 [facility] Comment on above: Performed By: #### L 100.0100, L500.2500, L500.4100 #### [facility] [address] [place], [address] MCHC (RBC) [Mass/Vol] 31.6 g/dL Low 32-36 [facility] Comment on above: Performed By: #### L 100.0100, L500.2500, L500.4100 #### [facility] [address] [place], [address] MCV (RBC) [Entitic vol] 94.1 fL Normal 81-99 [facility] Comment on above: Performed By: #### L 100.0100, L500.2500, L500.4100 #### [facility] [address] [place], [address] Monocytes/100 WBC (Bld) 8.9 % Normal 0-10 [facility] Comment on above: Performed By: #### L 100.0100, L500.2500, L500.4100 #### [facility] [address] [place], [address] Neutrophils/100 WBC (Bld) 59.8 % Normal 47-70 [facility] Comment on above: Performed By: #### L 100.0100, L500.2500, L500.4100 #### [facility] [address] [place], [address] Nucleated RBC (Bld) [#/Vol] 0 10*3/uL Normal 0-5 [facility] Comment on above: Performed By: #### L 100.0100, L500.2500, L500.4100 #### [facility] [address] [place], [address] Platelet mean volume (Bld) [Entitic vol] 9.9 fL Normal 6.2-12.0 [facility] Comment on above: Performed By: #### L 100.0100, L500.2500, L500.4100 #### [facility] [address] [place], [address] Platelets (Bld) [#/Vol] 334 10*3/uL Normal 150-450 [facility] Comment on above: Performed By: #### L 100.0100, L500.2500, L500.4100 #### [facility] [address] [place], [address] RBC (Bld) [#/Vol] 4.57 10*6/uL Normal 4.2-5.4 [facility] Comment on above: Performed By: #### L 100.0100, L500.2500, L500.4100 #### [facility] [address] [place], [address] RDW SD 49.5 fl High 35.1-43.9 [facility] Comment on above: Performed By: #### L 100.0100, L500.2500, L500.4100 #### [facility] [address] [place], [address] WBC (Bld) [#/Vol] 10.6 10*3/uL Normal 4.4-11.0 [facility] Comment on above: Performed By: #### L 100.0100, L500.2500, L500.4100 #### [facility] [address] [place], [address] Lipid Profileon 03-11-2024 Cholesterol [Mass/Vol] 156 mg/dL Normal 200 [facility] Comment on above: Order Comment: A1C D ONE IN OFFICE URINE UTO Result Comment: <200 mg/dL Desirable 200-240 mg/dL Borderline >240 mg/dL High Risk Performed By: #### L 100.0100, L500.2500, L500.4100 #### [facility] [address] [place], [address] Cholesterol in HDL [Mass/Vol] 48 mg/dL Normal [facility] Comment on above: Order Comment: A1C D ONE IN OFFICE URINE UTO Result Comment: The drugs N-Acetylcysteine and Metamizole may falsely depress this assay. Reference Range HDL <40 mg/dL Low HDL Cholesterol HDL >or= 60 mg/dL High HDL Cholesterol Performed By: #### L 100.0100, L500.2500, L500.4100 #### [facility] [address] [place], [address] Cholesterol in LDL [Mass/Vol] 80 mg/dL Normal 0-130 [facility] Comment on above: Order Comment: A1C D ONE IN OFFICE URINE UTO Performed By: #### L 100.0100, L500.2500, L500.4100 #### [facility] [address] [place], [address] Cholesterol in VLDL [Mass/Vol] 28 mg/dL Normal 5-40 [facility] Comment on above: Order Comment: A1C D ONE IN OFFICE URINE UTO Performed By: #### L 100.0100, L500.2500, L500.4100 #### [facility] [address] [place], [address] Triglyceride [Mass/Vol] 138 mg/dL Normal [facility] Comment on above: Order Comment: A1C D ONE IN OFFICE URINE UTO Result Comment: The drugs N-Acetylcysteine and Metamizole may falsely depress this assay. Serum Triglycerides Reference Interval Normal <150 mg/dL Borderline high 150 - 199 mg/dL High 200 - 499 mg/dL Very High > or = 500 mg/dL Performed By: #### L 100.0100, L500.2500, L500.4100 #### [facility] [address] [place], [address] Basophil percentageOrdered B y: Dr. Campos on 07-22-2022 Chloride [Moles/Vol] 108 mmol/L 98-107 [facility] Cholesterol [Mass/Vol] 146 mg/dL <200 [facility] Comment on above: <200 mg/dL Desirable 200-240 mg/dL Borderline >240 mg/dL High Risk Glucose [Mass/Vol] 94 mg/dL 74-106 [facility] Potassium [Moles/Vol] 3.8 mmol/L 3.5-5.1 [facility] Sodium [Moles/Vol] 138 mmol/L 136-145 [facility] Triglyceride [Mass/Vol] 248 mg/dL <199 [facility] Comment on above: The drugs N-Acetylcy steine and Metamizole may falsely depress this assay.Serum Triglycerides Reference Interval Normal <150 mg/dL Borderline high 150 - 199 mg/dL High 200 - 499 mg/dL Very High > or = 500 mg/dL Laboratory - Chemistry and C hemistry - challengeOrdered By: Dr. Campos on 07-22-2022 CO2 [Moles/Vol] 25.0 mmol/L 21.0-32.0 [facility] Urea nitrogen/Creatinine [Mass ratio] 12.2 mg/mg 10-20 [facility] No Panel InformationOrdered By: Dr. Campos on 07-22-2022 Estimated GFR (MDRD) Amer 80 mL/min >60 [facility] Comment on above: GFR Calc Estimated GFR (MDRD) Non-Af Amer 66 mL/min >60 [facility] Comment on above: Non- GFR Calc Serum or plasma calcium roxanne urement (mass/volume)Ordered By: Dr. Campos on 07-22-2022 Calcium [Mass/Vol] 8.9 mg/dL 8.5-10.1 [facility] Serum or plasma cholesterol in HDL measurement (mass/volume)Ordered By: Dr. Campos on 07-22-2022 Cholesterol in HDL [Mass/Vol] 35 mg/dL >40 [facility] Comment on above: The drugs N-Acetylcy steine and Metamizole may falsely depress this assay. Reference Range HDL <40 mg/dL Low HDL Cholesterol HDL >or= 60 mg/dL High HDL Cholesterol Serum or plasma cholesterol in VLDL measurement (mass/volume)Ordered By: Dr. Capmos on 07-22-2022 Cholesterol in VLDL [Mass/Vol] 50 mg/dL 5-40 [facility] Serum or plasma creatinine m easurement (mass/volume)Ordered By: Dr. Campos on 07-22-2022 Creatinine [Mass/Vol] 0.90 mg/dL 0.55-1.02 [facility] Comment on above: The validity of the calculated GFR & GFRAA in patients over 70 years has not been determined. Clinical correlation is essential. Serum or plasma low density lipoprotein (LDL) cholesterol measurement (mass/volume)Ordered By: Dr. Campos on 07-22-2022 Cholesterol in LDL [Mass/Vol] 61 mg/dL 0-130 [facility] Serum or plasma urea nitroge n measurement (mass/volume)Ordered By: Dr. Campos on 07-22-2022 Urea nitrogen [Mass/Vol] 11 mg/dL 7-18 [facility] Thin prep Papanicolaou smear with manual screeningOrdered By: Dr. Campos on 07-22-2022 Thin prep Papanicolaou smear with manual screening 5 5-15 [facility] Basophil percentageon 2021 Chloride [Moles/Vol] 107 mmol/L 98-107 [facility] Work Phone: Glucose [Mass/Vol] 95 mg/dL 74-106 [facility] Work Phone: Potassium [Moles/Vol] 3.6 mmol/L 3.5-5.1 [facility] Work Phone: Sodium [Moles/Vol] 140 mmol/L 136-145 [facility] Work Phone: Laboratory - Chemistry and C hemistry - challengeon 10-07-2021 CO2 [Moles/Vol] 27.0 mmol/L 21.0-32.0 [facility] Work Phone: Natriuretic peptide B (Bld) [Mass/Vol] 63.0 pg/mL 0-100 [facility] Work Phone: Urea nitrogen/Creatinine [Mass ratio] 11.5 mg/mg 10-20 [facility] Work Phone: No Panel Informationon 10-07 Estimated GFR (MDRD) Amer 83 mL/min >60 [facility] Work Phone: Comment on above: GFR Calc Estimated GFR (MDRD) Non-Af Amer 69 mL/min >60 [facility] Work Phone: Comment on above: Non- GFR Calc Serum or plasma calcium roxanne urement (mass/volume)on 10-07-2021 Calcium [Mass/Vol] 9.0 mg/dL 8.5-10.1 [facility] Work Phone: Serum or plasma creatinine m easurement (mass/volume)on 10-07-2021 Creatinine [Mass/Vol] 0.87 mg/dL 0.55-1.02 [facility] Work Phone: Comment on above: The validity of the calculated GFR & GFRAA in patients over 70 years has not been determined. Clinical correlation is essential. Serum or plasma urea nitroge n measurement (mass/volume)on 10-07-2021 Urea nitrogen [Mass/Vol] 10 mg/dL 7-18 [facility] Work Phone: Thin prep Papanicolaou smear with manual screeningon 10-07-2021 Thin prep Papanicolaou smear with manual screening 6 5-15 [facility] Work Phone: Absolute lymphocyte counton 10-01-2021 Lymphocytes Auto (Unsp spec) [#/Vol] 2.42 10*3/uL 0.83-4.51 [facility] Work Phone: Basophil percentageon 2021 Basophils/100 WBC (Bld) 0.9 % 0-1 [facility] Work Phone: Bilirubin [Mass/Vol] 0.20 mg/dL 0.20-1.00 [facility] Work Phone: Comment on above: For patients on eltr ombopag therapy, use of Dimension Bonner TBIL is not recommended. Chloride [Moles/Vol] 105 mmol/L 98-107 [facility] Work Phone: Eosinophils/100 WBC (Bld) 3.5 % 0-5 [facility] Work Phone: Glucose [Mass/Vol] 119 mg/dL 74-106 [facility] Work Phone: Comment on above: Fasting Glucose resu lt from 100 to 125 mg/dL suggests IMPAIRED HOMEOSTASIS per A.D.A. criteria. Neutrophils (Bld) [#/Vol] 5.1 10*3/uL 2.0-7.7 [facility] Work Phone: Neutrophils/100 WBC (Bld) 58.6 % 47-70 [facility] Work Phone: [phone] Potassium [Moles/Vol] 3.4 mmol/L 3.5-5.1 [facility] Work Phone: Protein [Mass/Vol] 7.7 g/dL 6.4-8.2 [facility] Work Phone: [phone] Sodium [Moles/Vol] 139 mmol/L 136-145 [facility] Work Phone: WBC (Bld) [#/Vol] 8.7 10*3/uL 4.4-11.0 [facility] Work Phone: Blood erythrocytes count (nu mber/volume)on 10-01-2021 RBC (Bld) [#/Vol] 4.30 10*6/uL 4.2-5.4 [facility] Work Phone: Blood hemoglobin measurement (mass/volume)on 10-01-2021 Hemoglobin (Bld) [Mass/Vol] 12.9 g/dL 12.0-15.0 [facility] Work Phone: Blood lymphocytes/100 leukoc yteson 10-01-2021 Lymphocytes/100 WBC (Bld) 28.0 % 19-41 [facility] Work Phone: Blood monocytes/100 leukocyt eson 10-01-2021 Monocytes/100 WBC (Bld) 8.7 % 0-10 [facility] Work Phone: Blood platelet mean volumeon 10-01-2021 Platelet mean volume (Bld) [Entitic vol] 9.6 fL 6.2-12.0 [facility] Work Phone: Determination of erythrocyte mean corpuscular volume (MCV)on 10-01-2021 MCV (RBC) [Entitic vol] 94.0 fL 81-99 [facility] Work Phone: Hematocrit Auto (Bld) [Volum e fraction]on 10-01-2021 Hematocrit (Bld) [Volume fraction] 40.4 % 37-47 [facility] Work Phone: Laboratory - Chemistry and C hemistry - challengeon 10-01-2021 ALP [Catalytic activity/Vol] 93 U/L 45-117 [facility] Work Phone: ALT [Catalytic activity/Vol] 25 U/L 13-56 [facility] Work Phone: CO2 [Moles/Vol] 26.0 mmol/L 21.0-32.0 [facility] Work Phone: Globulin (S) [Mass/Vol] 4.5 g/dL 2.2-4.2 [facility] Work Phone: Urea nitrogen/Creatinine [Mass ratio] 9.4 mg/mg 10-20 [facility] Work Phone: Laboratory - Hematology and Cell countson 10-01-2021 Erythrocyte distribution width (RBC) [Entitic vol] 49.9 fL 35.1-43.9 [facility] Work Phone: Erythrocyte distribution width (RBC) [Ratio] 14.4 % 11.6-14.6 [facility] Work Phone: Immature granulocytes/100 WBC (Bld) 0.300 % 0.0-0.9 [facility] Work Phone: Comment on above: IG% - Immature Granu locytes (promyelocytes, myelocytes and metamyelocytes) > 1% indicates that a LEFT SHIFT is Present. MCH (RBC) [Entitic mass] 30.0 pg 27.0-32.0 [facility] Work Phone: Nucleated RBC/100 WBC (Bld) [Ratio] 0 % 0-5 [facility] Work Phone: MCHC Auto (RBC) [Mass/Vol]on 10-01-2021 MCHC (RBC) [Mass/Vol] 31.9 g/dL 32-36 [facility] Work Phone: No Panel Informationon 10-01 Estimated GFR (MDRD) Amer 86 mL/min >60 [facility] Work Phone: Comment on above: GFR Calc Estimated GFR (MDRD) Non-Af Amer 71 mL/min >60 [facility] Work Phone: Comment on above: Non- GFR Calc Thyroid Stimulating Hormone (TSH) 1.18 uIU/mL 0.358-3.74 [facility] Work Phone: Platelets bldon 10-01-2021 Platelets (Bld) [#/Vol] 366 10*3/uL 150-450 [facility] Work Phone: Serum or plasma albumin roxanne urement (mass/volume)on 10-01-2021 Albumin [Mass/Vol] 3.2 g/dL 3.2-5.0 [facility] Work Phone: Serum or plasma albumin/glob ulin mass ratioon 10-01-2021 Albumin/Globulin [Mass ratio] 0.7 {ratio} 0.9-2.4 [facility] Work Phone: Serum or plasma calcium roxanne urement (mass/volume)on 10-01-2021 Calcium [Mass/Vol] 8.4 mg/dL 8.5-10.1 [facility] Work Phone: Serum or plasma creatinine m easurement (mass/volume)on 10-01-2021 Creatinine [Mass/Vol] 0.85 mg/dL 0.55-1.02 [facility] Work Phone: Comment on above: The validity of the calculated GFR & GFRAA in patients over 70 years has not been determined. Clinical correlation is essential. Serum or plasma urea nitroge n measurement (mass/volume)on 10-01-2021 Urea nitrogen [Mass/Vol] 8 mg/dL 7-18 [facility] Work Phone: Thin prep Papanicolaou smear with manual screeningon 10-01-2021 Thin prep Papanicolaou smear with manual screening 20 U/L 15-37 [facility] Work Phone: Thin prep Papanicolaou smear with manual screening 8 5-15 [facility] Work Phone: Basophil percentageon 2021 WBC (Bld) [#/Vol] 11.8 10*3/uL 4.4-11.0 [facility] Work Phone: Blood erythrocytes count (nu mber/volume)on 06-20-2021 RBC (Bld) [#/Vol] 3.21 10*6/uL 4.2-5.4 [facility] Work Phone: Blood hemoglobin measurement (mass/volume)on 06-20-2021 Hemoglobin (Bld) [Mass/Vol] 10.1 g/dL 12.0-15.0 [facility] Work Phone: Blood platelet mean volumeon 06-20-2021 Platelet mean volume (Bld) [Entitic vol] 10.0 fL 6.2-12.0 [facility] Work Phone: Determination of erythrocyte mean corpuscular volume (MCV)on 06-20-2021 MCV (RBC) [Entitic vol] 96.0 fL 81-99 [facility] Work Phone: Hematocrit Auto (Bld) [Volum e fraction]on 06-20-2021 Hematocrit (Bld) [Volume fraction] 30.8 % 37-47 [facility] Work Phone: Laboratory - Hematology and Cell countson 06-20-2021 Erythrocyte distribution width (RBC) [Entitic vol] 50.5 fL 35.1-43.9 [facility] Work Phone: Erythrocyte distribution width (RBC) [Ratio] 14.5 % 11.6-14.6 [facility] Work Phone: MCH (RBC) [Entitic mass] 31.5 pg 27.0-32.0 [facility] Work Phone: MCHC Auto (RBC) [Mass/Vol]on 06-20-2021 MCHC (RBC) [Mass/Vol] 32.8 g/dL 32-36 [facility] Work Phone: Platelets bldon 06-20-2021 Platelets (Bld) [#/Vol] 261 10*3/uL 150-450 [facility] Work Phone: Basophil percentageon 2021 Chloride [Moles/Vol] 106 mmol/L 98-107 [facility] Work Phone: Glucose [Mass/Vol] 162 mg/dL 74-106 [facility] Work Phone: Comment on above: Fasting Glucose resu lt greater than or equal to 126 mg/dL suggests DIABETES MELLITUS per A.D.A. criteria. Potassium [Moles/Vol] 4.5 mmol/L 3.5-5.1 [facility] Work Phone: Sodium [Moles/Vol] 135 mmol/L 136-145 [facility] Work Phone: Laboratory - Chemistry and C hemistry - challengeon 06-19-2021 CO2 [Moles/Vol] 25.0 mmol/L 21.0-32.0 [facility] Work Phone: Urea nitrogen/Creatinine [Mass ratio] 16.2 mg/mg 10-20 [facility] Work Phone: No Panel Informationon 06-19 Estimated Creatinine Clearance Calc 53.23 ml/min [facility] Work Phone: Estimated GFR (MDRD) Amer 85 mL/min >60 [facility] Work Phone: Comment on above: GFR Calc Estimated GFR (MDRD) Non-Af Amer 70 mL/min >60 [facility] Work Phone: Comment on above: Non- GFR Calc Serum or plasma calcium roxanne urement (mass/volume)on 06-19-2021 Calcium [Mass/Vol] 8.4 mg/dL 8.5-10.1 [facility] Work Phone: Serum or plasma creatinine m easurement (mass/volume)on 06-19-2021 Creatinine [Mass/Vol] 0.86 mg/dL 0.55-1.02 [facility] Work Phone: Comment on above: The validity of the calculated GFR & GFRAA in patients over 70 years has not been determined. Clinical correlation is essential. Serum or plasma urea nitroge n measurement (mass/volume)on 06-19-2021 Urea nitrogen [Mass/Vol] 14 mg/dL 7-18 [facility] Work Phone: Thin prep Papanicolaou smear with manual screeningon 06-19-2021 Thin prep Papanicolaou smear with manual screening 4 5-15 [facility] Work Phone: Glucose Glucometer (BldC) [M ass/Vol]on 06-18-2021 Glucose [Mass/Vol] 105 mg/dL 70-110 [facility] Work Phone: Comment on above: MANAGEMENT OF PATIEN T CARE PER NURSING PROTOCOL No Panel Informationon 06-17 SARS-CoV-2 Antigen (Rapid) [facility] Work Phone: Absolute lymphocyte counton 06-05-2021 Lymphocytes Auto (Unsp spec) [#/Vol] 2.30 10*3/uL 0.83-4.51 [facility] Work Phone: Activated partial thrombopla stin time (aPTT) in platelet poor plasma by coagulation aon 06-05-2021 aPTT Coag (PPP) [Time] 28.4 s 24.1-36.2 [facility] Work Phone: Basophil percentageon 2021 Basophils/100 WBC (Bld) 0.9 % 0-1 [facility] Work Phone: Eosinophils/100 WBC (Bld) 2.2 % 0-5 [facility] Work Phone: Neutrophils (Bld) [#/Vol] 5.2 10*3/uL 2.0-7.7 [facility] Work Phone: Neutrophils/100 WBC (Bld) 61.1 % 47-70 [facility] Work Phone: Blood lymphocytes/100 leukoc yteson 06-05-2021 Lymphocytes/100 WBC (Bld) 27.0 % 19-41 [facility] Work Phone: Blood monocytes/100 leukocyt eson 06-05-2021 Monocytes/100 WBC (Bld) 8.2 % 0-10 [facility] Work Phone: INR in Blood by Coagulation assayon 06-05-2021 INR Coag (Bld) [Relative time] 1.1 {INR} [facility] Work Phone: Laboratory - Chemistry and C hemistry - challengeon 06-05-2021 Magnesium [Mass/Vol] 2.1 mg/dL 1.6-2.3 [facility] Work Phone: Comment on above: Performed at: [address] [id number] Director: Jt Martinez PhD, Phone: [phone] Laboratory - Coagulationon 0 06-05-2021 PT Coag (PPP) [Time] 13.1 s 11.7-14.9 [facility] Work Phone: Laboratory - Hematology and Cell countson 06-05-2021 Immature granulocytes/100 WBC (Bld) 0.600 % 0.0-0.9 [facility] Work Phone: Comment on above: IG% - Immature Granu locytes (promyelocytes, myelocytes and metamyelocytes) > 1% indicates that a LEFT SHIFT is Present. Nucleated RBC/100 WBC (Bld) [Ratio] 0 % 0-5 [facility] Work Phone: No Panel Informationon 06-05 Fructosamine 216 umol/L 0-285 [facility] Work Phone: Comment on above: Published reference interval for apparently healthysubjects between age 20 and 60 is 205 - 285 umol/L and in apoorly controlled diabetic population is 228 - 563 umol/Lwith a mean of 396 umol/L. Nasal Screen MRSA/MSSA [facility] Work Phone: No Panel Information Nasal Screen MRSA/MSSA [facility] Work Phone: SARS-CoV-2 Antigen (Rapid) [facility] Work Phone: Vital Signs Date Time Vital Sign Value Performing Clinician Faci lity 06-20-2021 09:25-0500 SaO2% (BldA) [Mass fraction] 95 % Dr. Allyn Campos Work Phone: [facility] Work Phone: 06-20-2021 08:25-0500 SaO2% (BldA) [Mass fraction] 95 % Dr. lAlyn Campos Work Phone: [facility] Work Phone: 06-20-2021 08:01-0500 Body temperature 98 [degF] Dr. Allyn Campos Work Phone: [facility] Work Phone: 06-20-2021 08:01-0500 Diastolic blood pressure 84 mm[Hg] Dr. Allyn Campos Work Phone: [facility] Work Phone: 06-20-2021 08:01-0500 Heart rate 81 /min Dr. Allyn Campos Work Phone: [facility] Work Phone: 06-20-2021 08:01-0500 Respiratory rate 18 /min Dr. Allyn Campos Work Phone: [facility] Work Phone: 06-20-2021 08:01-0500 Systolic blood pressure 125 mm[Hg] Dr. Allyn Campos Work Phone: [facility] Work Phone: 06-20-2021 07:01-0500 Body temperature 98 [degF] Dr. Allyn Campos Work Phone: [facility] Work Phone: 06-20-2021 07:01-0500 Diastolic blood pressure 84 mm[Hg] Dr. Allyn Campos Work Phone: [facility] Work Phone: 06-20-2021 07:01-0500 Heart rate 81 /min Dr. Allyn Campos Work Phone: [facility] Work Phone: 06-20-2021 07:01-0500 Respiratory rate 18 /min Dr. Allyn Campos Work Phone: [facility] Work Phone: 06-20-2021 07:01-0500 Systolic blood pressure 125 mm[Hg] Dr. Allyn Campos Work Phone: [facility] Work Phone: 06-18-2021 12:25-0500 Body height 161.[address] Allyn Campos Work Phone: [facility] Work Phone: 06-18-2021 12:25-0500 Body mass index (BMI) [Ratio] 41.1 kg/m2 Dr. Allyn Campos Work Phone: [facility] Work Phone: 06-18-2021 12:25-0500 Body weight 106.[address] Allyn Campos Work Phone: [facility] Work Phone: 06-18-2021 11:25-0500 Body height 161.[address] Allyn Campos Work Phone: [facility] Work Phone: 06-18-2021 11:25-0500 Body mass index (BMI) [Ratio] 41.1 kg/m2 Dr. Allyn Campos Work Phone: [facility] Work Phone: 06-18-2021 11:25-0500 Body weight 106.[address] Allyn Campos Work Phone: [facility] Work Phone: 05-06-2021 09:13-0500 Body mass index (BMI) [Ratio] 39.1 kg/m2 Dr. Allyn Campos Work Phone: [facility] Work Phone: 05-06-2021 09:13-0500 Body weight 101.[address] Allyn Campos Work Phone: [facility] Work Phone: Encounters Encounter Date Encounter Type Care Provider Facility Start: 03-11-2024 End: 03-11-2024 ambulatory Allyn Campos Facility:[facility] Start: 07-22-2022 End: 07-22-2022 ambulatory [facility] Work Phone: Start: 07-22-2022 End: 07-22-2022 Patient encounter procedure [facility] Start: 10-07-2021 End: 10-07-[address] Allyn Campos Work Phone: [facility] Start: 10-01-2021 End: 10-01-[address] Allyn Campos Work Phone: [facility] Start: 08-23-2021 End: 08-23-[address] Allyn Campos Work Phone: [facility] Start: 08-20-2021 End: 08-20-[address] Allyn Campos Work Phone: [facility]-Outpatient Breast Imaging Start: 08-14-2021 End: 08-14-[address] Allyn Campos Work Phone: [facility]-Physical Therapy Start: 08-14-[address] Allyn cary Work Phone: [facility]-Physical Therapy Start: 07-29-2021 End: 07-29-[address] Allyn Campos Work Phone: [facility] Start: 07-01-2021 End: 07-01-[address] Allyn Campos Work Phone: [facility] Start: 06-20-2021 Non-patient / Non-visit Dr. Lizette Campos Work Phone: [facility] Start: 06-18-2021 End: 06-20-2021 Evaluation and management of inpatient Dr. Allyn Campos Work Phone: [facility]-Medical Surgical 3 Start: 06-18-2021 Non-patient / Non-visit Dr. Lizette Campos Work Phone: [facility] Start: 06-05-2021 Non-patient / Non-visit Dr. Lizette Campos Work Phone: [facility] Start: 05-22-2021 End: 05-22-[address] Allyn Campos Work Phone: [facility] Start: 05-06-2021 End: 05-06-[address] Allyn Campos Work Phone: [facility] Procedures Date Procedure Procedure Detail Performing Clinician Start: 08-20-2021 Screening mammography Zelalem Campos Work Phone: Start: 07-29-2021 Plain x-ray of pelvi s and lower extremity Dr. Allyn Campos Work Phone: Start: 06-18-2021 Plain X-ray of hip Dr. Allyn Campos Work Phone: Start: 06-17-2021 SARS-CoV-2 Antigen (Rapid) Dr. Allyn Campos Work Phone: Start: 06-05-2021 Nasal Screen MRSA/MSSA Dr. Allyn Campos Work Phone: Start: 05-22-2021 MRI of lower extremity Dr. Allyn Campos Work Phone: Nasal Screen MRSA/MSSA Dr. Veronica Campos Work Phone: SARS-CoV-2 Antigen (Rapid) Zelalem Campos Work Phone: Plan of Treatment Date Care Activity Detail Author Start: 06-20-2021 Patient discharge [facility] Work Phone: Start: 06-19-2021 Referral to service [facility] Work Phone: Start: 06-18-2021 Anesthesia open total hip arthroplasty ANESTH HIP ARTHROPLASTY [facility] Work Phone: Start: 06-18-2021 Arthrp acetblr/prox fem prostc agrft/algrft TOTAL HIP ARTHROPLASTY [facility] Work Phone: Start: 06-18-2021 Provision of overbed trapeze [facility] Work Phone: Start: 06-18-2021 Admission procedure [facility] Work Phone: Start: 06-18-2021 Ambulation therapy management [facility] Work Phone: Start: 06-18-2021 Application of device [facility] Work Phone: Start: 06-18-2021 Assessment of risk of venous thromboembolism [facility] Work Phone: Start: 06-18-2021 Catheterization of vein [facility] Work Phone: Start: 06-18-2021 Exercises [facility] Work Phone: Start: 06-18-2021 Following clinical pathway protocol [facility] Work Phone: Start: 06-18-2021 Introduction of urinary catheter [facility] Work Phone: Start: 06-18-2021 Measuring intake and output [facility] Work Phone: Start: 06-18-2021 Neurovascular assessment [facility] Work Phone: Start: 06-18-2021 Patient education [facility] Work Phone: Start: 06-18-2021 Procedure discontinued [facility] Work Phone: Start: 06-18-2021 Provision of activity privileges [facility] Work Phone: Start: 06-18-2021 Referral to occupational therapist [facility] Work Phone: Start: 06-18-2021 Referral to service [facility] Work Phone: Start: 06-18-2021 Vital signs measurements [facility] Work Phone: Start: 06-18-2021 Wound care [facility] Work Phone: Start: 06-18-2021 [facility] Work Phone: Start: 06-18-2021 Application of antithromboembolic stockings [facility] Work Phone: Start: 06-18-2021 Application of intermittent pneumatic compression device [facility] Work Phone: Magnesium [Mass/volu me] in Serum or Plasma [facility] Work Phone: Patient referral [facility] Work Phone: Immunizations Immunization Date Immunization Notes Care Provider Arianna fregoso 01-24-[address] Allyn Campos Work Phone: [facility] 11-18-2019 tetanus toxoid, redu vitor diphtheria toxoid, and acellular pertussis vaccine, adsorbed Dr. Allyn Campos Work Phone: [facility] Payers Date Payer Category Payer Self-pay [id number] 2021 Medicare [id number] Medicare [id number] Unknown [id number] Unknown [id number] Social History Date Type Detail Facility Start: 08-23-2021 Tobacco smoking status NHIS Unknown if ever smoked [facility] Start: 11-18-2019 None [facility] Start: 11-18-2019 Spouse/ Signif icant Other [facility] Start: 08-28-2020 Cigarettes [facility] Start: 1955 Sex Assigned At Female [facility] Medical Equipment Procedure Code Equipment Code Equipment Origin al Text Equipment Identifier Dates ([id number]) Ceramic femoral head prosthesis [id number] FDA Start: 06-18-2021 ([id number]) Coated hip femur prosthesis, modular [id number] FDA Start: 06-18-2021 ([id number]) Non-constrained polyethylene acetabular liner [id number] FDA Start: 06-18-2021 ([id number]) Acetabular shell [id number] FDA Start: 06-18-2021 ([id number]) Orthopaedic bone screw, non-bioabsorbable, sterile [id number] FDA Start: 06-18-2021 Goals Date Patient Goal Desired Activity /State Functional Status Date Assessment Result Facility 06-20-2021 Functional status Ambulates [facility] Work Phone: 06-20-2021 Functional status Tolerates Activity Well [facility] Work Phone: Mental Status Date Assessment Result Facility 06-20-2021 Cognitive function Voice/Name [facility] Work Phone: Evaluation note Note Date & Type Note Facility Evaluation note Diagnosis Onset Date Osteoarthritis of left hip a cute Osteoarthritis of left hip a cute S/P total left hip arthroplasty acute S/P total left hip arthroplasty acute Orthopedic aftercare [facility] Work Phone: Evaluation note Note Date & Type Note Facility Evaluation note Diagnosis Onset Date Osteoarthritis of left hip a cute S/P total left hip arthroplasty acute S/P total left hip arthroplasty acute Orthopedic aftercare [facility] Work Phone: Evaluation note Note Date & Type Note Facility Evaluation note Diagnosis Onset Date Orthopedic aftercare [facility] Work Phone: Evaluation note Note Date & Type Note Facility Evaluation note No assessment information availa [facility] Work Phone: Chief Complaint and Reason for Visit Chief Complaint LEFT HIP Unilateral primary osteoarthritis, left hip LT TOTAL HIP W ESTUARDO LT TOTAL HIP W ESTUARDO LT TOTAL HIP W ESTUARDO LT TOTAL HIP W ESTUARDO left hip left hip xray LTH/DR TO FAX RX SCREENING LEFT HIP Reason for Visit Osteoarthritis of le ft hip Osteoarthritis of left hip S/P total left hip arthroplasty S/P total left hip arthroplasty Orthopedic aftercare Chief Complaint LT TOTAL HIP W ESTUARDO LT TOTAL HIP W ESTUARDO LT TOTAL HIP W ESTUARDO left hip left hip xray LTH/DR TO FAX RX SCREENING LEFT HIP Reason for Visit Osteoarthritis of le ft hip S/P total left hip arthroplasty S/P total left hip arthroplasty Orthopedic aftercare Chief Complaint LTH/ TO FAX RX SCREENING LEFT HIP Reason for Visit Orthopedic aftercare Advance Directives No Advanced Directives Records Found Advance Directive Response Recorded Date/ Time Living Will No June 18 1:29pm Power of Yarn Inspector No June 18, 2021 1:29pm Summary Purpose Family History No Family History Records Found Additional Source Comments Goals (unrecognized section and content) Goals may be documented in a n alternate sectionGoals may be documented in an alternate sectionGoals may be documented in an alternate sectionGoals may be documented in an alternate section Care Teams (unrecognized sec tion and content) Team Status: Active Member Role Status Dates Dr. Allyn Campos MD Family Provider Active Dr. Allyn Campos MD Primary Care Provider Active Team Status: Inactive Member Role Status Dates Dr. Allyn Campos MD Primary Care Prov ider, Attending Provider, Referring Provider Active INFORMATION SOURCE (unrecogn ized section and content) DATE CREATED AUTHOR 04/10/2024 [facility] FOR RECORDS PERTAINING TO PATIENTS WHO ARE OR HAVE BEEN ENROLLED IN A CHEMICAL DEPENDENCY/SUBSTANCEABUSE PROGRAM, SOME INFORMATION MAY BE OMITTED. This clinical summary was aggregated from multiple sources. Caution should be exercised in using it in the provision of clinical care. This summary normalizes information from multiple sources, and as a consequence, information in this document may materially change the coding, format and clinical context of patient data. In addition, data may be omitted in some cases. CLINICAL DECISIONS SHOULD BE BASED ON THE PRIMARY CLINICAL RECORDS. [employer] provides no warranty or guarantee of the accuracy or completeness of information in this document.
== END | disposition home or self-care (01) ==
LOC: LABSPEC 14:02
PROVIDERS: PCP Family Medicine; Referring Provider Family Medicine; Visit Provider Family Medicine
DX: R35.0 Frequency of micturition (principal)
CPT/HCPCS: 87086; 87088

== ENCOUNTER → 2024-10-06 | Outpatient (CLI) | payer MEDICARE, SELFPAY | END | disposition home or self-care (01) | LOC: LABSPEC 11:01 | PROVIDERS: PCP Family Medicine; Referring Provider Family Medicine; Visit Provider Family Medicine | DX: R35.0 Frequency of micturition (principal) | CPT/HCPCS: 87086; 87088 ==

== ENCOUNTER → 2024-12-27 | Outpatient (CLI) | payer MEDICARE, SELFPAY ==
[2024-12-27 12:46] LABS: Hematocrit 42.1 % (37-47); Hemoglobin 13.9 g/dL (12.0-15.0); Immature Granulocytes Count 0.030 X10^3/uL (0.0-0.0); Mean Corp Hgb Conc 33.0 g/dL (32-36); Mean Corpuscular Volume 92.5 fL (81-99); Mean Platelet Vol. 9.9 fl (6.2-12.0); NRBC Flagged by Analyzer 0 % (0-5); Platelet Count 360 K/mm3 (150-450); RBC Distribution Width CV 14.1 % (11.6-14.6); RBC Distribution Width SD 48.1 fl (35.1-43.9); Red Blood Count 4.55 M/mm3 (4.2-5.4); White Blood Count 9.1 K/mm3 (4.4-11.0)
[2024-12-27 13:23] LABS: AST(SGOT) 25 U/L (<=31); Alanine Aminotransfer ALT/SGPT 26 U/L (<=34); Albumin, Serum 4.2 g/dL (3.4-4.8); Alkaline Phosphatase 81 U/L (35-104); Anion Gap 12 (5-15); BUN 9 mg/dL (4-19); BUN/Creat Ratio 11.3 RATIO (10-20); Calcium,Total 9.2 mg/dL (7.6-11.0); Carbon Dioxide 23.9 mmol/L (21.0-32.0); Chloride 104 mmol/L (98-108); Cholesterol 150 mg/dL (<=200); Globulin 3.5 g/dL (2.2-4.2); Glucose 91 mg/dL (70-99); Low Density Lipoprotein Calc. 80 mg/dL; Potassium 3.9 mmol/L (3.3-5.1); Triglycerides 137 mg/dL; Very Low Density Lipoprotein 27 mg/dL (5-40); cholesterol:hdl ratio screen 3.54
== END | disposition home or self-care (01) ==
LOC: MFPLAB 09:53
PROVIDERS: PCP Family Medicine; Referring Provider Family Medicine; Visit Provider Family Medicine
DX: E11.9 Type 2 diabetes mellitus without complications (principal); R53.83 Other fatigue
CPT/HCPCS: 80053; 80061; 81001; 82043; 82570; 83036; 84439; 84443; 85025; 85652